=== PATIENT | female | born 1970 | race African-American/Black ===

== ENCOUNTER 2017-02-19 20:54 | Emergency (ER) | payer SELFPAY ==
[~2017-02-19] VITALS: Ht 175.3 cm; Wt 146.5 kg
[~2017-02-19 20:54] MED LIST: CYCL10TA2 PO; HYDR-971 PO; IBUP-1007 PO
[2017-02-19] MEDS ORDERED: IBUP-1007 PO (22:12)
[2017-02-19 22:13] LABS: OBC FLU VALID
--- NOTE | 2017-02-19 22:13 | PHYS DOC ---
Past Medical History Past Medical History: Anxiety, Diabetes-Type II, Hypertension Past Surgical History: , Other Additional Past Surgical Histo: left knee Alcohol Use: None Drug Use: None Adult General Chief Complaint Chief Complaint: FLU SYMPTOM HPI HPI Patient is a 46 year old female who presents with complaint of sore throat for the past 3 days. Patient states her symptoms have been progressively getting worse. Patient has been having fevers at home but states that she has not been measuring her temperature. Patient has noted swelling and pus present on her tonsils. Patient has been taking ibuprofen and Tylenol to help with symptoms with no relief. Patient states that she has had been having been having intermittent cough as well with her symptoms. Patient has noted pain along her neck near her jaw. Patient denies any chest pain associated with her symptoms. Review of Systems Review of Systems Constitutional: Fever, body aches [] Eyes: Denies change in visual acuity, redness, or eye pain [] HENT: Sore throat [] Respiratory: Cough [] Cardiovascular: Denies chest pain or edema [] GI: Denies abdominal pain, nausea, vomiting, bloody stools or diarrhea [] : Denies dysuria or hematuria [] Musculoskeletal: Denies back pain or joint pain [] Integument: Denies rash or skin lesions [] Neurologic: Denies headache, focal weakness or sensory changes [] Current Medications Current Medications Current Medications Medications (Trade) Dose Ordered Sig/Jaylen Start Time Stop Time Status Last Admin Dose Admin Acetaminophen/ Hydrocodone Bitart (Lortab 7.5/325) 1 tab 1X ONCE 02/19/17 22:30 02/19/17 22:31 Dexamethasone Sodium Phosphate (Decadron) 12 mg 1X ONCE 02/19/17 22:30 02/19/17 22:31 Allergies Allergies Allergies Coded Allergies Type Severity Reaction Last Updated Verified No Known Drug Allergies 03/24/16 No Physical Exam Physical Exam Constitutional: Alert, obese, afebrile, no acute distress. [] HENT: Normocephalic, atraumatic, bilateral external ears normal, oropharynx moist, tonsils appear swollen, erythematous, with exudates present, nose normal. [] Eyes: PERRLA, EOMI, conjunctiva normal, no discharge. [] Neck: Normal range of motion, tender anterior cervical lymphadenopathy present, no stridor. [] Cardiovascular:Heart rate regular rhythm, no murmur [] Lungs & Thorax: Bilateral breath sounds clear to auscultation [] Abdomen: Bowel sounds normal, soft, no tenderness, no masses, no pulsatile masses. [] Skin: Warm, dry, no erythema, no rash. [] Back: No tenderness, no CVA tenderness. [] Extremities: No tenderness, no cyanosis, no clubbing, ROM intact, no edema. [] Neurologic: Alert and oriented X 3, normal motor function, normal sensory function, no focal deficits noted. [] Current Patient Data Vital Signs Vital Signs Date Time Temp Pulse Resp B/P Pulse Ox O2 Delivery O2 Flow Rate FiO2 02/19/17 20:59 98.2 91 20 184/101 98 Room Air 98.2 EKG EKG Not performed [] Radiology/Procedures Radiology/Procedures Not performed [] Course & Med Decision Making Course & Med Decision Making Pertinent Labs and Imaging studies reviewed. (See chart for details) The patient's strep test was positive in the emergency department. Patient treated with Bicillin L-A injection for treatment of strep pharyngitis. Patient was also given IM Decadron and oral [place] to help with sore throat symptoms. Advise follow-up with primary doctor in 3-5 days if symptoms are not improving and return to emergency department for any worsening symptoms. Patient voiced understanding and in agreement with treatment plan. Dragon Disclaimer Dragon Disclaimer This electronic medical record was generated, in whole or in part, using a voice recognition dictation system. Departure Departure Impression: Primary Impression: Strep pharyngitis Disposition: HOME, SELF-CARE Condition: IMPROVED Referrals: NO PCP (PCP) Patient Instructions: Strep Throat Additional Instructions: You were treated with an injection of antibiotics called Bicillin which will completely treat your strep throat. Continue on Tylenol and ibuprofen as well as warm fluids and salt water gargles to help soothe your throat. Follow-up with your primary doctor in 3-5 days if symptoms do not improve and return to the emergency department for any worsening symptoms. Scripts Ibuprofen 600 Mg [id number] Mg PO Q6HRS PRN INFLAMMATION #30 TAB Prov:SEYMOUR LIZ MD 02/19/17 SEYMOUR LIZ MD Feb 19, 2017 22:13
[2017-02-19 22:30] VITALS: BP 152/100
[2017-02-19] MEDS ORDERED: HYDROCODONE/APAP 7.5/325MG TABLET. PO ONE (22:30)
[2017-02-19] MEDS ORDERED: PENICILLIN G BENZATHINE LA 1,200,000 UNIT/2 ML DISP.SYRIN. IM ONE (22:30)
[2017-02-19] MEDS ORDERED: DEXAMETHASONE SOD PHOS 20 MG/5 ML VIAL. IM ONE (22:30)
[2017-02-20 08:42] LABS: NEGATIVE OBC STREP NEG; POSITIVE OBC STREP POS
== END 2017-02-19 22:50 | disposition home or self-care (01) ==
LOC: ER 20:54
DX: J02.0 Streptococcal pharyngitis (principal); M79.1 Myalgia
CPT/HCPCS: 87804; 87880; 96372; 99284; J0561; J1100

== ENCOUNTER 2017-04-01 13:35 | Observation (INO) | payer SELFPAY ==
[~2017-04-01] VITALS: Ht 175.3 cm; Wt 148.5 kg
[2017-04-01] MEDS ORDERED: ONDANSETRON PF 4 MG/2 ML VIAL. IV ONE (14:45)
[2017-04-01 14:53] LABS: BASO # 0.1 x10^3/uL (0.0-0.2); BASO % 1 % (0-3); EOS % 1 % (0-3); HEMATOCRIT 37.7 % (36.0-47.0); LYMPH # 3.4 x10^3/uL (1.0-4.8); LYMPH % 34 % (24-48); MEAN CORPUSCULAR HEMOGLOBIN 26 pg (25-35); MEAN CORPUSCULAR HGB CONC 32 g/dL (31-37); MEAN CORPUSCULAR VOLUME 82 fL (79-100); MONO % 6 % (0-9); NEUT % 58 % (31-73); PLATELET COUNT 285 x10^3/uL (140-400); RED BLOOD COUNT 4.62 x10^6/uL (3.50-5.40); RED CELL DISTRIBUTION WIDTH 14.9 % (11.5-14.5); WHITE BLOOD COUNT 9.9 x10^3/uL (4.0-11.0)
--- NOTE | 2017-04-01 14:57 | RAD ---
Indication right chest pain for 3 days. PA and lateral views of the chest were obtained and are compared to a study just over 10 years ago. Heart size is normal. There is some suggested mild pulmonary vascular congestion or perhaps fluid overload. A focal consolidated pneumonia is not seen. There is no pleural fluid or pneumothorax. Bony structures appear grossly intact. IMPRESSION: No focal process. Suspect mild pulmonary vascular congestion or fluid overload.
[2017-04-01] MEDS: fentaNYL PF VIAL 100 MCG/2 ML VIAL IV PRN ×4 (14:59→22:57)
[2017-04-01 15:07] LABS: CALCIUM 9.3 mg/dL (8.5-10.1); GFR 72.5; POTASSIUM 3.8 mmol/L (3.5-5.1)
--- NOTE | 2017-04-01 15:07 | RAD ---
Right upper quadrant abdominal ultrasound, 04/01/2017: History: Pain The gallbladder is surgically absent. The common hepatic duct measures 6 mm which is within normal limits for the postcholecystectomy state. The liver demonstrates generalized increased echogenicity. No hepatic mass is evident. The liver measures 16.5 cm in craniocaudad extent. The visualized portions of the pancreas and right kidney are unremarkable. IMPRESSION: 1. Status post cholecystectomy. 2. Increased hepatic echogenicity suggesting hepatic steatosis.
[2017-04-01 15:12] LABS: ALBUMIN 3.2 g/dL (3.4-5.0); ALBUMIN/GLOBULIN RATIO 0.6 (1.0-1.7); TOTAL BILIRUBIN 0.2 mg/dL (0.2-1.0); TOTAL PROTEIN 8.4 g/dL (6.4-8.2)
--- NOTE | 2017-04-01 15:19 | PHYS DOC ---
Past Medical History Past Medical History: Anxiety, Diabetes-Type II, Hypertension Past Surgical History: Cholecystectomy, , Other Additional Past Surgical Histo: left knee Alcohol Use: None Drug Use: None Adult General Chief Complaint Chief Complaint: OTHER [facility]PL[facility] HPI Patient is a 46 year old female who presents with constant pain to right lower chest and right upper quadrant of her abdomen with fluctuating intensity. States she has pain radiation through her right upper chest to her right shoulder and right back. Pain is worse with breathing or moving. She has decreased appetite and slight nausea. She has pain if she coughs, but has only coughed a couple times. She denies fever or chills, vomiting, palpitations, diaphoresis, orthopnea, lightheadedness, leg pain or swelling, hemoptysis, dyspnea, pain with eating, constipation, diarrhea, dysuria, hematuria. Review of Systems Review of Systems Constitutional: Denies fever or chills [] Eyes: Denies change in visual acuity, redness, or eye pain [] HENT: Denies nasal congestion or sore throat [] Respiratory: Denies shortness of breath [] Cardiovascular: No additional information not addressed in HPI [] GI: Denies vomiting, bloody stools or diarrhea [] : Denies dysuria or hematuria [] Musculoskeletal: Denies joint pain [] Integument: Denies rash or skin lesions [] Neurologic: Denies headache, focal weakness or sensory changes [] Endocrine: Denies polyuria or polydipsia [] Current Medications Current Medications Current Medications Medications (Trade) Dose Ordered Sig/Jaylen Start Time Stop Time Status Last Admin Dose Admin Fentanyl Citrate (Fentanyl 2ml Vial) 50 mcg PRN Q15MIN PRN 04/01/17 14:45 04/01/17 15:33 50 MCG Info (Do NOT chart on this entry -- for MONITORING) 1 each PRN DAILY PRN 04/01/17 16:00 04/03/17 15:59 Iohexol (Omnipaque 300 Mg/ml) 75 ml 1X ONCE 04/01/17 16:00 04/01/17 16:01 DC 04/01/17 16:00 75 ML Ondansetron HCl (Zofran) 4 mg 1X ONCE 04/01/17 14:45 04/01/17 14:46 DC 04/01/17 14:45 4 MG Allergies Allergies Allergies Coded Allergies Type Severity Reaction Last Updated Verified No Known Drug Allergies 03/24/16 No Physical Exam Physical Exam Constitutional: Well developed, well nourished, no acute distress, non-toxic appearance. [] HENT: Normocephalic, atraumatic, bilateral external ears normal, oropharynx moist, nose normal. [] Eyes: PERRLA, EOMI. [] Neck: Normal range of motion, supple. [] Cardiovascular:Heart rate regular rhythm, equal distal pulses [] Lungs & Thorax: Bilateral breath sounds clear to auscultation [] Abdomen: Bowel sounds normal, soft, mild epigastric and RUQ tenderness, no guarding or rebound. [] Skin: Warm, dry, no erythema, no rash. [] Back: No midline spinal tenderness, no CVA tenderness. Has tenderness through right paraspinal muscles with no visual or palpable abnormality [] Extremities: No tenderness, ROM intact, no edema. [] Neurologic: Alert and oriented X 3, normal motor function, normal sensory function, no focal deficits noted. [] Psychologic: Affect normal, judgement normal, mood normal. [] Current Patient Data Vital Signs Vital Signs Date Time Temp Pulse Resp B/P (MAP) Pulse Ox O2 Delivery O2 Flow Rate FiO2 04/01/17 16:44 80 18 177/123 (141) 97 Room Air 04/01/17 13:50 98.7 98.7 Lab Values Laboratory Tests Test 04/01/17 14:45 04/01/17 15:30 White Blood Count 9.9 x10^3/uL (4.0-11.0) Red Blood Count 4.62 x10^6/uL (3.50-5.40) Hemoglobin 12.0 g/dL (12.0-15.5) Hematocrit 37.7 % (36.0-47.0) Mean Corpuscular Volume 82 fL (79-100) Mean Corpuscular Hemoglobin 26 pg (25-35) Mean Corpuscular Hemoglobin Concent 32 g/dL (31-37) Red Cell Distribution Width 14.9 % (11.5-14.5) H Platelet Count 285 x10^3/uL (140-400) Neutrophils (%) (Auto) 58 % (31-73) Lymphocytes (%) (Auto) 34 % (24-48) Monocytes (%) (Auto) 6 % (0-9) Eosinophils (%) (Auto) 1 % (0-3) Basophils (%) (Auto) 1 % (0-3) Neutrophils # (Auto) 5.7 x10^3uL (1.8-7.7) Lymphocytes # (Auto) 3.4 x10^3/uL (1.0-4.8) Monocytes # (Auto) 0.6 x10^3/uL (0.0-1.1) Eosinophils # (Auto) 0.1 x10^3/uL (0.0-0.7) Basophils # (Auto) 0.1 x10^3/uL (0.0-0.2) D-Dimer (Lou) 0.71 ug/mlFEU (0.00-0.50) H Sodium Level 140 mmol/L (136-145) Potassium Level 3.8 mmol/L (3.5-5.1) Chloride Level 102 mmol/L (98-107) Carbon Dioxide Level 31 mmol/L (21-32) Anion Gap 7 (6-14) Blood Urea Nitrogen 10 mg/dL (7-20) Creatinine 1.0 mg/dL (0.6-1.0) Estimated GFR (Cockcroft-Gault) 72.5 BUN/Creatinine Ratio 10 (6-20) Glucose Level 238 mg/dL (70-99) H Calcium Level 9.3 mg/dL (8.5-10.1) Total Bilirubin 0.2 mg/dL (0.2-1.0) Aspartate Amino Transferase (AST) 16 U/L (15-37) Alanine Aminotransferase (ALT) 17 U/L (14-59) Alkaline Phosphatase 111 U/L (46-116) Troponin I Quantitative < 0.017 ng/mL (0.000-0.055) Total Protein 8.4 g/dL (6.4-8.2) H Albumin 3.2 g/dL (3.4-5.0) L Albumin/Globulin Ratio 0.6 (1.0-1.7) L Lipase 108 U/L (73-393) Urine Collection Type Unknown Urine Color Jeanne Urine Clarity Clear Urine pH 6.0 Urine Specific [place] >=1.030 Urine Protein 30 mg/dL (NEG-TRACE) Urine Glucose (UA) 500 mg/dL (NEG) Urine Ketones (Stick) Trace mg/dL (NEG) Urine Blood Negative (NEG) Urine Nitrite Negative (NEG) Urine Bilirubin Small (NEG) Urine Urobilinogen Dipstick 1.0 mg/dL (0.2 mg/dL) Urine Leukocyte Esterase Negative (NEG) Urine RBC 0 /HPF (0-2) Urine WBC Occ /HPF (0-4) Urine Squamous Epithelial Cells Few /LPF Urine Bacteria 0 /HPF (0-FEW) Urine Mucus Marked /LPF Urine Test Negative (NEG) Laboratory Tests 04/01/17 14:45 Laboratory Tests 04/01/17 14:45 EKG EKG EKG as interpreted by me as normal sinus rhythm, rate 84, Q3 T3, no other acute ST-T changes, normal intervals, no ectopy Radiology/Procedures Radiology/Procedures Chest xray as interpreted by me with no acute cardiopulmonary disease process Ultrasound right upper quadrant IMPRESSION: 1. Status post cholecystectomy. 2. Increased hepatic echogenicity suggesting hepatic steatosis. DICTATED and SIGNED BY: TONJA ROD MD DATE: 04/01/[address] angiogram chest IMPRESSION: Very limited study evaluating for pulmonary embolus. No large central pulmonary emboli are seen but there is very poor opacification of the pulmonary arteries which limits the assessment for pulmonary embolus. A definite acute process in the chest is not apparent. Probable dromedary hump associated with the left kidney. If renal pathology is clinically suspect ultrasound could be performed. DICTATED and SIGNED BY: CHELLE SUN MD DATE: 04/01/17 1650 Course & Med Decision Making Course & Med Decision Making Pertinent Labs and Imaging studies reviewed. (See chart for details) Laboratory evaluation is largely unremarkable other than elevated d-dimer. CT angiogram was useless due to poor timing of contrast injection and imaging. Imaging is otherwise nonacute as above. Recommend observation admission with dose of Lovenox for possible pulmonary embolism. Discussed case with Dr. Lawson, who will admit and perform further workup for pulmonary embolus. Dragon Disclaimer Dragon Disclaimer This electronic medical record was generated, in whole or in part, using a voice recognition dictation system. Departure Departure Impression: Primary Impression: Chest pain Additional Impressions: Back pain Right upper quadrant abdominal pain Disposition: ADMITTED INPATIENT Condition: STABLE Referrals: NO PCP (PCP) Problem Qualifiers Primary Impression: Chest pain Chest pain type: chest pain on breathing Qualified Codes: R07.1 - Chest pain on breathing Additional Impressions: Back pain Back pain location: thoracic back pain Chronicity: acute Back pain laterality: right Qualified Codes: M54.6 - Pain in thoracic spine Soraya TRUJILLO MD April 01, 2017 15:19
[2017-04-01 15:39] LABS: BILIRUBIN,URINE SMALL (NEG); GLUCOSE,URINE 500 mg/dL (NEG); NITRITE,URINE NEGATIVE (NEG); PROTEIN,URINE 30 mg/dL (NEG-TRACE)
[2017-04-01 15:44] LABS: BACTERIA,URINE 0 /HPF (0-FEW); RBC,URINE 0 /HPF (0-2); SQUAMOUS EPITHELIAL CELL,UR FEW /LPF; WBC,URINE OCC /HPF (0-4)
[2017-04-01] MEDS ORDERED: IOHEXOL 300 MG/ML 75 ML VIAL IV ONE (16:00)
[2017-04-01] MEDS ORDERED: CONTRAST GIVEN MC PRN (16:00)
[2017-04-01 16:29] LABS: NEG OBC UR NEG; POS OBC UR POS
--- NOTE | 2017-04-01 17:01 | RAD ---
Indication right-sided chest pain. Axial images through the chest were obtained. The examination was to be tailored for the detection of pulmonary emboli. MIP images were generated and reviewed. 75 cc of Omnipaque [address] imaging of the chest is available. There is suboptimal visualization of the pulmonary arteries. No definite large central pulmonary emboli are seen or definite embolus in the proximal portion of the main pulmonary arteries. Distal aspects of the main pulmonary arteries as well as the lobar, segmental and subsegmental branches are is not adequately opacified to the assess for potential pulmonary embolus. Imaging through the upper abdomen shows no acute finding. There is a probable dromedary hump seen associated with the left kidney. The thoracic aorta is not well opacified but grossly normal. There is no significant hilar or mediastinal adenopathy. There is no dominant soft tissue mass in either lung. There is no acute parenchymal infiltrate significant pleural fluid collection or pneumothorax seen. IMPRESSION: Very limited study evaluating for pulmonary embolus. No large central pulmonary emboli are seen but there is very poor opacification of the pulmonary arteries which limits the assessment for pulmonary embolus. A definite acute process in the chest is not apparent. Probable dromedary hump associated with the left kidney. If renal pathology is clinically suspect ultrasound could be performed. PQRS Compliance Statement: One or more of the following individualized dose reduction techniques were utilized for this examination: 1. Automated exposure control 2. Adjustment of the mA and/or kV according to patient size 3. Use of iterative reconstruction technique
[2017-04-01] MEDS ORDERED: IV NORMAL SALINE 1000ML BAG 1,000 ML IV ONE (17:45)
[2017-04-01] MEDS ORDERED: ACETAMINOPHEN 325 MG TABLET. PO PRN (17:45)
[2017-04-01] MEDS ORDERED: ONDANSETRON PF 4 MG/2 ML VIAL. IV PRN ×2 (17:45→23:15)
[2017-04-01] MEDS: MORPHINE SULFATE 4 MG/ML DISP.SYRIN. IV PRN ×2 (17:53→20:00)
[2017-04-01 21:25] VITALS: BP 173/113
[2017-04-01 21:30] VITALS: BP 173/83
[2017-04-01 23:00] VITALS: BP 169/105
--- NOTE | 2017-04-01 23:03 | PDOC1 ---
History and Physical Current Problem List Problem List Problems Medical Problems: (1) Back pain Status: Acute (2) Chest pain Status: Acute (3) Right upper quadrant abdominal pain Status: Acute Current Medications Current Medications Current Medications Medications (Trade) Dose Ordered Sig/Jaylen Start Time Stop Time Status Last Admin Dose Admin Acetaminophen (Tylenol) 650 mg PRN Q4HRS PRN 04/01/17 17:45 04/02/17 17:44 Enoxaparin Sodium (Lovenox 150mg Syringe) 140 mg 1X ONCE 04/01/17 17:45 04/01/17 17:46 DC 04/01/17 18:07 140 MG Fentanyl Citrate (Fentanyl 2ml Vial) 50 mcg PRN Q15MIN PRN 04/01/17 14:45 04/01/17 22:57 50 MCG Info (Do NOT chart on this entry -- for MONITORING) 1 each PRN DAILY PRN 04/01/17 16:00 04/03/17 15:59 Iohexol (Omnipaque 300 Mg/ml) 75 ml 1X ONCE 04/01/17 16:00 04/01/17 16:01 DC 04/01/17 16:00 75 ML Morphine Sulfate 4 mg PRN Q2HR PRN 04/01/17 17:45 04/02/17 17:44 04/01/17 20:00 4 MG Ondansetron HCl (Zofran) 4 mg PRN Q8HRS PRN 04/01/17 17:45 04/02/17 17:44 Sodium Chloride 1,000 ml @ 100 mls/hr 1X ONCE 04/01/17 17:45 04/02/17 03:44 04/01/17 17:45 100 MLS/HR Allergies Allergies Allergies Coded Allergies Type Severity Reaction Last Updated Verified No Known Drug Allergies 03/24/16 No ROS Review of System CONSTITUTIONAL: No fever or chills EYES: No recent changes SKIN: No rash or itching CARDIOVASCULAR: chest pain no, syncope, palpitations, or edema RESPIRATORY: No SOB or cough GASTROINTESTINAL: No nausea, vomiting or abdominal pain NEUROLOGICAL: No headaches or weakness ENDOCRINE: No cold or heat intolerance GENITOURINARY: No urgency or frequency of urination MUSCULOSKELETAL: back pain /stiffness LYMPHATICS: No enlarged lymph nodes PSYCHIATRIC: No anxiety or depression Physical Exam Physical Exam GEN.: No apparent distress. Alert and oriented. obese, not in distress HEENT: Head is normocephalic, atraumatic NECK: Supple. no JVD LUNGS: Clear to auscultation. normal airflow, chest tenderness in back HEART: RRR, S1, S2 present. Peripheral pulses intact ABDOMEN: Soft, nontender. Positive bowel sounds. EXTREMITIES: Without any cyanosis. NEUROLOGIC: Normal speech, normal tone PSYCHIATRIC: Normal affect, normal mood. SKIN: No ulcerations Vitals Vitals Vital Signs Date Time Temp Pulse Resp B/P (MAP) Pulse Ox O2 Delivery O2 Flow Rate FiO2 04/01/17 22:57 16 96 Room Air 04/01/17 19:50 92 170/88 (115) 04/01/17 13:50 98.7 98.7 Labs Labs Laboratory Tests Test 04/01/17 14:45 04/01/17 15:30 White Blood Count 9.9 x10^3/uL (4.0-11.0) Red Blood Count 4.62 x10^6/uL (3.50-5.40) Hemoglobin 12.0 g/dL (12.0-15.5) Hematocrit 37.7 % (36.0-47.0) Mean Corpuscular Volume 82 fL (79-100) Mean Corpuscular Hemoglobin 26 pg (25-35) Mean Corpuscular Hemoglobin Concent 32 g/dL (31-37) Red Cell Distribution Width 14.9 % (11.5-14.5) Platelet Count 285 x10^3/uL (140-400) Neutrophils (%) (Auto) 58 % (31-73) Lymphocytes (%) (Auto) 34 % (24-48) Monocytes (%) (Auto) 6 % (0-9) Eosinophils (%) (Auto) 1 % (0-3) Basophils (%) (Auto) 1 % (0-3) Neutrophils # (Auto) 5.7 x10^3uL (1.8-7.7) Lymphocytes # (Auto) 3.4 x10^3/uL (1.0-4.8) Monocytes # (Auto) 0.6 x10^3/uL (0.0-1.1) Eosinophils # (Auto) 0.1 x10^3/uL (0.0-0.7) Basophils # (Auto) 0.1 x10^3/uL (0.0-0.2) D-Dimer (Lou) 0.71 ug/mlFEU (0.00-0.50) Sodium Level 140 mmol/L (136-145) Potassium Level 3.8 mmol/L (3.5-5.1) Chloride Level 102 mmol/L (98-107) Carbon Dioxide Level 31 mmol/L (21-32) Anion Gap 7 (6-14) Blood Urea Nitrogen 10 mg/dL (7-20) Creatinine 1.0 mg/dL (0.6-1.0) Estimated GFR (Cockcroft-Gault) 72.5 BUN/Creatinine Ratio 10 (6-20) Glucose Level 238 mg/dL (70-99) Calcium Level 9.3 mg/dL (8.5-10.1) Total Bilirubin 0.2 mg/dL (0.2-1.0) Aspartate Amino Transf (AST/SGOT) 16 U/L (15-37) Alanine Aminotransferase (ALT/SGPT) 17 U/L (14-59) Alkaline Phosphatase 111 U/L (46-116) Troponin I Quantitative < 0.017 ng/mL (0.000-0.055) Total Protein 8.4 g/dL (6.4-8.2) Albumin 3.2 g/dL (3.4-5.0) Albumin/Globulin Ratio 0.6 (1.0-1.7) Lipase 108 U/L (73-393) Urine Collection Type Unknown Urine Color Jeanne Urine Clarity Clear Urine pH 6.0 Urine Specific [place] >=1.030 Urine Protein 30 mg/dL (NEG-TRACE) Urine Glucose (UA) 500 mg/dL (NEG) Urine Ketones (Stick) Trace mg/dL (NEG) Urine Blood Negative (NEG) Urine Nitrite Negative (NEG) Urine Bilirubin Small (NEG) Urine Urobilinogen Dipstick 1.0 mg/dL (0.2 mg/dL) Urine Leukocyte Esterase Negative (NEG) Urine RBC 0 /HPF (0-2) Urine WBC Occ /HPF (0-4) Urine Squamous Epithelial Cells Few /LPF Urine Bacteria 0 /HPF (0-FEW) Urine Mucus Marked /LPF Urine Test Negative (NEG) Laboratory Tests Test 04/01/17 14:45 04/01/17 15:30 White Blood Count 9.9 x10^3/uL (4.0-11.0) Red Blood Count 4.62 x10^6/uL (3.50-5.40) Hemoglobin 12.0 g/dL (12.0-15.5) Hematocrit 37.7 % (36.0-47.0) Mean Corpuscular Volume 82 fL (79-100) Mean Corpuscular Hemoglobin 26 pg (25-35) Mean Corpuscular Hemoglobin Concent 32 g/dL (31-37) Red Cell Distribution Width 14.9 % (11.5-14.5) Platelet Count 285 x10^3/uL (140-400) Neutrophils (%) (Auto) 58 % (31-73) Lymphocytes (%) (Auto) 34 % (24-48) Monocytes (%) (Auto) 6 % (0-9) Eosinophils (%) (Auto) 1 % (0-3) Basophils (%) (Auto) 1 % (0-3) Neutrophils # (Auto) 5.7 x10^3uL (1.8-7.7) Lymphocytes # (Auto) 3.4 x10^3/uL (1.0-4.8) Monocytes # (Auto) 0.6 x10^3/uL (0.0-1.1) Eosinophils # (Auto) 0.1 x10^3/uL (0.0-0.7) Basophils # (Auto) 0.1 x10^3/uL (0.0-0.2) D-Dimer (Lou) 0.71 ug/mlFEU (0.00-0.50) Sodium Level 140 mmol/L (136-145) Potassium Level 3.8 mmol/L (3.5-5.1) Chloride Level 102 mmol/L (98-107) Carbon Dioxide Level 31 mmol/L (21-32) Anion Gap 7 (6-14) Blood Urea Nitrogen 10 mg/dL (7-20) Creatinine 1.0 mg/dL (0.6-1.0) Estimated GFR (Cockcroft-Gault) 72.5 BUN/Creatinine Ratio 10 (6-20) Glucose Level 238 mg/dL (70-99) Calcium Level 9.3 mg/dL (8.5-10.1) Total Bilirubin 0.2 mg/dL (0.2-1.0) Aspartate Amino Transf (AST/SGOT) 16 U/L (15-37) Alanine Aminotransferase (ALT/SGPT) 17 U/L (14-59) Alkaline Phosphatase 111 U/L (46-116) Troponin I Quantitative < 0.017 ng/mL (0.000-0.055) Total Protein 8.4 g/dL (6.4-8.2) Albumin 3.2 g/dL (3.4-5.0) Albumin/Globulin Ratio 0.6 (1.0-1.7) Lipase 108 U/L (73-393) Urine Collection Type Unknown Urine Color Jeanne Urine Clarity Clear Urine pH 6.0 Urine Specific [place] >=1.030 Urine Protein 30 mg/dL (NEG-TRACE) Urine Glucose (UA) 500 mg/dL (NEG) Urine Ketones (Stick) Trace mg/dL (NEG) Urine Blood Negative (NEG) Urine Nitrite Negative (NEG) Urine Bilirubin Small (NEG) Urine Urobilinogen Dipstick 1.0 mg/dL (0.2 mg/dL) Urine Leukocyte Esterase Negative (NEG) Urine RBC 0 /HPF (0-2) Urine WBC Occ /HPF (0-4) Urine Squamous Epithelial Cells Few /LPF Urine Bacteria 0 /HPF (0-FEW) Urine Mucus Marked /LPF Urine Test Negative (NEG) VTE Prophylaxis Ordered VTE Prophylaxis Devices: Yes VTE Pharmacological Prophylaxi: Yes PASTOR MOELLER MD April 01, 2017 23:03
[2017-04-01] MEDS ORDERED: ALBUTEROL SULFATE 2.5 MG/3 ML NEBU. NEB PRN (23:15)
[2017-04-02] MEDS: ACETAMINOPHEN 325 MG TABLET. PO PRN ×2 (01:51→11:37)
[2017-04-02] MEDS: fentaNYL PF VIAL 100 MCG/2 ML VIAL IV PRN (01:53)
[2017-04-02] MEDS ORDERED: ASPI-482 PO (02:36)
[2017-04-02 03:00] VITALS: BP 160/107
[2017-04-02] MEDS: HYDROcodone/APAP 5/325MG 1 TAB TABLET PO PRN ×2 (03:59→10:26)
[2017-04-02] MEDS: hydrALAZINE 20 MG/ML VIAL. IVP PRN ×2 (04:08→10:28)
[2017-04-02] MEDS: MORPHINE SULFATE 4 MG/ML DISP.SYRIN. IV PRN ×3 (05:20→15:13)
[2017-04-02 06:09] LABS: BASO # 0.1 x10^3/uL (0.0-0.2); BASO % 1 % (0-3); EOS % 2 % (0-3); HEMATOCRIT 34.9 % (36.0-47.0); HEMOGLOBIN 11.6 g/dL (12.0-15.5); LYMPH # 3.9 x10^3/uL (1.0-4.8); LYMPH % 40 % (24-48); MEAN CORPUSCULAR HEMOGLOBIN 27 pg (25-35); MEAN CORPUSCULAR HGB CONC 33 g/dL (31-37); MEAN CORPUSCULAR VOLUME 80 fL (79-100); MONO % 7 % (0-9); NEUT % 51 % (31-73); PLATELET COUNT 274 x10^3/uL (140-400); RED BLOOD COUNT 4.38 x10^6/uL (3.50-5.40); RED CELL DISTRIBUTION WIDTH 14.7 % (11.5-14.5); WHITE BLOOD COUNT 9.8 x10^3/uL (4.0-11.0)
[2017-04-02 06:27] LABS: CALCIUM 9.1 mg/dL (8.5-10.1); CREATININE 0.9 mg/dL (0.6-1.0); GFR 81.9; POTASSIUM 4.4 mmol/L (3.5-5.1)
--- NOTE | 2017-04-02 07:24 | EKG ---
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
[2017-04-02 07:30] VITALS: BP 180/99
[2017-04-02] MEDS: IV NORMAL SALINE 1000ML BAG 1,000 ML IV SCH ×2 (08:41→16:30)
[2017-04-02] MEDS: ASPIRIN ENTERIC COATED 81 MG TABLET.DR. PO SCH (10:26)
[2017-04-02 10:30] VITALS: BP 188/113
[2017-04-02] MEDS ORDERED: LISI1TAB5 PO (12:12)
[2017-04-02] MEDS ORDERED: LABETALOL 20 MG/4 ML DISP.SYRIN. IVP ONE (12:15)
--- NOTE | 2017-04-02 12:16 | PDOC ---
PROGRESS NOTES Chief Complaint Chief Complaint 1. COstochondritis 2. HTN URGENCY 3. HEadaches 4. Obesity 5. NEck spasms History of Present Illness History of Present Illness Crying CLaims headaches, neck hurts CTA neg' TRops neg EKG neg No PCP, SP BUt SBP 180s, was 200s on admit PLAn: Meets JNC 7 HTN stage 2 STart LIsinopil/HCTZ combo (2 drug regimen) INc tyelenol dose STart flexeril 10 TID schedueld Check echo - hypertensive heart dse HOLD Dc Vitals Vitals Vital Signs Date Time Temp Pulse Resp B/P (MAP) Pulse Ox O2 Delivery O2 Flow Rate FiO2 04/02/17 10:30 97.7 80 20 188/113 (138) 94 Room Air 97.7 Physical Exam General: Other (crying) Heart: Regular rate Lungs: Clear Abdomen: Normal bowel sounds, Soft Extremities: No clubbing, No cyanosis Skin: No rashes, No breakdown Labs LABS Laboratory Tests Test 04/01/17 14:45 04/01/17 15:30 04/02/17 04:35 04/02/17 04:55 White Blood Count 9.9 x10^3/uL (4.0-11.0) 9.8 x10^3/uL (4.0-11.0) Red Blood Count 4.62 x10^6/uL (3.50-5.40) 4.38 x10^6/uL (3.50-5.40) Hemoglobin 12.0 g/dL (12.0-15.5) 11.6 g/dL (12.0-15.5) Hematocrit 37.7 % (36.0-47.0) 34.9 % (36.0-47.0) Mean Corpuscular Volume 82 fL (79-100) 80 fL (79-100) Mean Corpuscular Hemoglobin 26 pg (25-35) 27 pg (25-35) Mean Corpuscular Hemoglobin Concent 32 g/dL (31-37) 33 g/dL (31-37) Red Cell Distribution Width 14.9 % (11.5-14.5) 14.7 % (11.5-14.5) Platelet Count 285 x10^3/uL (140-400) 274 x10^3/uL (140-400) Neutrophils (%) (Auto) 58 % (31-73) 51 % (31-73) Lymphocytes (%) (Auto) 34 % (24-48) 40 % (24-48) Monocytes (%) (Auto) 6 % (0-9) 7 % (0-9) Eosinophils (%) (Auto) 1 % (0-3) 2 % (0-3) Basophils (%) (Auto) 1 % (0-3) 1 % (0-3) Neutrophils # (Auto) 5.7 x10^3uL (1.8-7.7) 5.0 x10^3uL (1.8-7.7) Lymphocytes # (Auto) 3.4 x10^3/uL (1.0-4.8) 3.9 x10^3/uL (1.0-4.8) Monocytes # (Auto) 0.6 x10^3/uL (0.0-1.1) 0.6 x10^3/uL (0.0-1.1) Eosinophils # (Auto) 0.1 x10^3/uL (0.0-0.7) 0.2 x10^3/uL (0.0-0.7) Basophils # (Auto) 0.1 x10^3/uL (0.0-0.2) 0.1 x10^3/uL (0.0-0.2) D-Dimer (Lou) 0.71 ug/mlFEU (0.00-0.50) Sodium Level 140 mmol/L (136-145) 139 mmol/L (136-145) Potassium Level 3.8 mmol/L (3.5-5.1) 4.4 mmol/L (3.5-5.1) Chloride Level 102 mmol/L (98-107) 101 mmol/L (98-107) Carbon Dioxide Level 31 mmol/L (21-32) 27 mmol/L (21-32) Anion Gap 7 (6-14) 11 (6-14) Blood Urea Nitrogen 10 mg/dL (7-20) 15 mg/dL (7-20) Creatinine 1.0 mg/dL (0.6-1.0) 0.9 mg/dL (0.6-1.0) Estimated GFR (Cockcroft-Gault) 72.5 81.9 BUN/Creatinine Ratio 10 (6-20) Glucose Level 238 mg/dL (70-99) 170 mg/dL (70-99) Calcium Level 9.3 mg/dL (8.5-10.1) 9.1 mg/dL (8.5-10.1) Total Bilirubin 0.2 mg/dL (0.2-1.0) Aspartate Amino Transf (AST/SGOT) 16 U/L (15-37) Alanine Aminotransferase (ALT/SGPT) 17 U/L (14-59) Alkaline Phosphatase 111 U/L (46-116) Troponin I Quantitative < 0.017 ng/mL (0.000-0.055) < 0.017 ng/mL (0.000-0.055) Total Protein 8.4 g/dL (6.4-8.2) Albumin 3.2 g/dL (3.4-5.0) Albumin/Globulin Ratio 0.6 (1.0-1.7) Lipase 108 U/L (73-393) Urine Collection Type Unknown Urine Color Jeanne Urine Clarity Clear Urine pH 6.0 Urine Specific Celoron >=1.030 Urine Protein 30 mg/dL (NEG-TRACE) Urine Glucose (UA) 500 mg/dL (NEG) Urine Ketones (Stick) Trace mg/dL (NEG) Urine Blood Negative (NEG) Urine Nitrite Negative (NEG) Urine Bilirubin Small (NEG) Urine Urobilinogen Dipstick 1.0 mg/dL (0.2 mg/dL) Urine Leukocyte Esterase Negative (NEG) Urine RBC 0 /HPF (0-2) Urine WBC Occ /HPF (0-4) Urine Squamous Epithelial Cells Few /LPF Urine Bacteria 0 /HPF (0-FEW) Urine Mucus Marked /LPF Urine Test Negative (NEG) Review of Systems Review of Systems chest pain, headache, neck pain Assessment and Plan Assessmemt and Plan Problems Medical Problems: (1) Back pain Status: Acute (2) Chest pain Status: Acute (3) Right upper quadrant abdominal pain Status: Acute Problems: Comment Review of Relevant I have reviewed the following items kj (where applicable) has been applied. Labs Laboratory Tests Test 04/01/17 14:45 04/01/17 15:30 04/02/17 04:35 04/02/17 04:55 White Blood Count 9.9 x10^3/uL (4.0-11.0) 9.8 x10^3/uL (4.0-11.0) Red Blood Count 4.62 x10^6/uL (3.50-5.40) 4.38 x10^6/uL (3.50-5.40) Hemoglobin 12.0 g/dL (12.0-15.5) 11.6 g/dL (12.0-15.5) Hematocrit 37.7 % (36.0-47.0) 34.9 % (36.0-47.0) Mean Corpuscular Volume 82 fL (79-100) 80 fL (79-100) Mean Corpuscular Hemoglobin 26 pg (25-35) 27 pg (25-35) Mean Corpuscular Hemoglobin Concent 32 g/dL (31-37) 33 g/dL (31-37) Red Cell Distribution Width 14.9 % (11.5-14.5) 14.7 % (11.5-14.5) Platelet Count 285 x10^3/uL (140-400) 274 x10^3/uL (140-400) Neutrophils (%) (Auto) 58 % (31-73) 51 % (31-73) Lymphocytes (%) (Auto) 34 % (24-48) 40 % (24-48) Monocytes (%) (Auto) 6 % (0-9) 7 % (0-9) Eosinophils (%) (Auto) 1 % (0-3) 2 % (0-3) Basophils (%) (Auto) 1 % (0-3) 1 % (0-3) Neutrophils # (Auto) 5.7 x10^3uL (1.8-7.7) 5.0 x10^3uL (1.8-7.7) Lymphocytes # (Auto) 3.4 x10^3/uL (1.0-4.8) 3.9 x10^3/uL (1.0-4.8) Monocytes # (Auto) 0.6 x10^3/uL (0.0-1.1) 0.6 x10^3/uL (0.0-1.1) Eosinophils # (Auto) 0.1 x10^3/uL (0.0-0.7) 0.2 x10^3/uL (0.0-0.7) Basophils # (Auto) 0.1 x10^3/uL (0.0-0.2) 0.1 x10^3/uL (0.0-0.2) D-Dimer (Lou) 0.71 ug/mlFEU (0.00-0.50) Sodium Level 140 mmol/L (136-145) 139 mmol/L (136-145) Potassium Level 3.8 mmol/L (3.5-5.1) 4.4 mmol/L (3.5-5.1) Chloride Level 102 mmol/L (98-107) 101 mmol/L (98-107) Carbon Dioxide Level 31 mmol/L (21-32) 27 mmol/L (21-32) Anion Gap 7 (6-14) 11 (6-14) Blood Urea Nitrogen 10 mg/dL (7-20) 15 mg/dL (7-20) Creatinine 1.0 mg/dL (0.6-1.0) 0.9 mg/dL (0.6-1.0) Estimated GFR (Cockcroft-Gault) 72.5 81.9 BUN/Creatinine Ratio 10 (6-20) Glucose Level 238 mg/dL (70-99) 170 mg/dL (70-99) Calcium Level 9.3 mg/dL (8.5-10.1) 9.1 mg/dL (8.5-10.1) Total Bilirubin 0.2 mg/dL (0.2-1.0) Aspartate Amino Transf (AST/SGOT) 16 U/L (15-37) Alanine Aminotransferase (ALT/SGPT) 17 U/L (14-59) Alkaline Phosphatase 111 U/L (46-116) Troponin I Quantitative < 0.017 ng/mL (0.000-0.055) < 0.017 ng/mL (0.000-0.055) Total Protein 8.4 g/dL (6.4-8.2) Albumin 3.2 g/dL (3.4-5.0) Albumin/Globulin Ratio 0.6 (1.0-1.7) Lipase 108 U/L (73-393) Urine Collection Type Unknown Urine Color Jeanne Urine Clarity Clear Urine pH 6.0 Urine Specific Celoron >=1.030 Urine Protein 30 mg/dL (NEG-TRACE) Urine Glucose (UA) 500 mg/dL (NEG) Urine Ketones (Stick) Trace mg/dL (NEG) Urine Blood Negative (NEG) Urine Nitrite Negative (NEG) Urine Bilirubin Small (NEG) Urine Urobilinogen Dipstick 1.0 mg/dL (0.2 mg/dL) Urine Leukocyte Esterase Negative (NEG) Urine RBC 0 /HPF (0-2) Urine WBC Occ /HPF (0-4) Urine Squamous Epithelial Cells Few /LPF Urine Bacteria 0 /HPF (0-FEW) Urine Mucus Marked /LPF Urine Test Negative (NEG) Laboratory Tests Test 04/01/17 14:45 04/01/17 15:30 04/02/17 04:35 04/02/17 04:55 White Blood Count 9.9 x10^3/uL (4.0-11.0) 9.8 x10^3/uL (4.0-11.0) Red Blood Count 4.62 x10^6/uL (3.50-5.40) 4.38 x10^6/uL (3.50-5.40) Hemoglobin 12.0 g/dL (12.0-15.5) 11.6 g/dL (12.0-15.5) Hematocrit 37.7 % (36.0-47.0) 34.9 % (36.0-47.0) Mean Corpuscular Volume 82 fL (79-100) 80 fL (79-100) Mean Corpuscular Hemoglobin 26 pg (25-35) 27 pg (25-35) Mean Corpuscular Hemoglobin Concent 32 g/dL (31-37) 33 g/dL (31-37) Red Cell Distribution Width 14.9 % (11.5-14.5) 14.7 % (11.5-14.5) Platelet Count 285 x10^3/uL (140-400) 274 x10^3/uL (140-400) Neutrophils (%) (Auto) 58 % (31-73) 51 % (31-73) Lymphocytes (%) (Auto) 34 % (24-48) 40 % (24-48) Monocytes (%) (Auto) 6 % (0-9) 7 % (0-9) Eosinophils (%) (Auto) 1 % (0-3) 2 % (0-3) Basophils (%) (Auto) 1 % (0-3) 1 % (0-3) Neutrophils # (Auto) 5.7 x10^3uL (1.8-7.7) 5.0 x10^3uL (1.8-7.7) Lymphocytes # (Auto) 3.4 x10^3/uL (1.0-4.8) 3.9 x10^3/uL (1.0-4.8) Monocytes # (Auto) 0.6 x10^3/uL (0.0-1.1) 0.6 x10^3/uL (0.0-1.1) Eosinophils # (Auto) 0.1 x10^3/uL (0.0-0.7) 0.2 x10^3/uL (0.0-0.7) Basophils # (Auto) 0.1 x10^3/uL (0.0-0.2) 0.1 x10^3/uL (0.0-0.2) D-Dimer (Lou) 0.71 ug/mlFEU (0.00-0.50) Sodium Level 140 mmol/L (136-145) 139 mmol/L (136-145) Potassium Level 3.8 mmol/L (3.5-5.1) 4.4 mmol/L (3.5-5.1) Chloride Level 102 mmol/L (98-107) 101 mmol/L (98-107) Carbon Dioxide Level 31 mmol/L (21-32) 27 mmol/L (21-32) Anion Gap 7 (6-14) 11 (6-14) Blood Urea Nitrogen 10 mg/dL (7-20) 15 mg/dL (7-20) Creatinine 1.0 mg/dL (0.6-1.0) 0.9 mg/dL (0.6-1.0) Estimated GFR (Cockcroft-Gault) 72.5 81.9 BUN/Creatinine Ratio 10 (6-20) Glucose Level 238 mg/dL (70-99) 170 mg/dL (70-99) Calcium Level 9.3 mg/dL (8.5-10.1) 9.1 mg/dL (8.5-10.1) Total Bilirubin 0.2 mg/dL (0.2-1.0) Aspartate Amino Transf (AST/SGOT) 16 U/L (15-37) Alanine Aminotransferase (ALT/SGPT) 17 U/L (14-59) Alkaline Phosphatase 111 U/L (46-116) Troponin I Quantitative < 0.017 ng/mL (0.000-0.055) < 0.017 ng/mL (0.000-0.055) Total Protein 8.4 g/dL (6.4-8.2) Albumin 3.2 g/dL (3.4-5.0) Albumin/Globulin Ratio 0.6 (1.0-1.7) Lipase 108 U/L (73-393) Urine Collection Type Unknown Urine Color Jeanne Urine Clarity Clear Urine pH 6.0 Urine Specific Celoron >=1.030 Urine Protein 30 mg/dL (NEG-TRACE) Urine Glucose (UA) 500 mg/dL (NEG) Urine Ketones (Stick) Trace mg/dL (NEG) Urine Blood Negative (NEG) Urine Nitrite Negative (NEG) Urine Bilirubin Small (NEG) Urine Urobilinogen Dipstick 1.0 mg/dL (0.2 mg/dL) Urine Leukocyte Esterase Negative (NEG) Urine RBC 0 /HPF (0-2) Urine WBC Occ /HPF (0-4) Urine Squamous Epithelial Cells Few /LPF Urine Bacteria 0 /HPF (0-FEW) Urine Mucus Marked /LPF Urine Test Negative (NEG) Medications Current Medications Ondansetron HCl (Zofran) 4 mg 1X ONCE IV Last administered on 04/01/17 14:45 ; Start 04/01/17 at 14:45; Stop 04/01/17 at 14:46; Status DC Fentanyl Citrate (Fentanyl 2ml Vial) 50 mcg PRN Q15MIN PRN IV pain for 3 doses Last administered on 04/02/17 01:53; Start 04/01/17 at 14:45 Iohexol (Omnipaque 300 Mg/ml) 75 ml 1X ONCE IV Last administered on 04/01/17 16:00; Start 04/01/17 at 16:00; Stop 04/01/17 at 16:01; Status DC Info (Do NOT chart on this entry -- for MONITORING) 1 each PRN DAILY PRN MC SEE COMMENTS; Start 04/01/17 at 16:00; Stop 04/03/17 at 15:59 Ondansetron HCl (Zofran) 4 mg PRN Q8HRS PRN IV NAUSEA/VOMITING; Start 04/01/17 at 17:45; Stop 04/01/17 at 23:05; Status DC Morphine Sulfate 4 mg PRN Q2HR PRN IV PAIN Last administered on 04/02/17 08:41 ; Start 04/01/17 at 17:45; Stop 04/02/17 at 17:44 Acetaminophen (Tylenol) 650 mg PRN Q4HRS PRN PO FEVER; Start 04/01/17 at 17:45 ; Stop 04/01/17 at 23:05; Status DC Enoxaparin Sodium (Lovenox 150mg Syringe) 140 mg 1X ONCE SQ Last administered on 04/01/17 18:07; Start 04/01/17 at 17:45; Stop 04/01/17 at 17:46; Status DC Sodium Chloride 1,000 ml @ 100 mls/hr 1X ONCE IV Last administered on 17:45; Start 04/01/17 at 17:45; Stop 04/02/17 at 03:44; Status DC Acetaminophen (Tylenol) 325 mg PRN Q6HRS PRN PO MILD PAIN / TEMP Last administered on 04/02/17 11:37; Start 04/01/17 at 23:15 Acetaminophen/ Hydrocodone Bitart (Lortab 5/325) 1 tab PRN Q6HRS PRN PO MODERATE TO SEVERE PAIN Last administered on 04/02/17 03:59; Start 04/01/17 at 23:15 Hydralazine HCl (Apresoline) 10 mg PRN Q4HRS PRN IVP ELEVATED BP, SEE COMMENTS Last administered on 04/02/17 10:28; Start 04/01/17 at 23:15 Ondansetron HCl (Zofran) 4 mg PRN Q8HRS PRN IV NAUSEA/VOMITING; Start 04/01/17 at 23:15 Albuterol Sulfate (Ventolin Neb Soln) 2.5 mg PRN Q4HRS PRN NEB SHORTNESS OF BREATH; Start 04/01/17 at 23:15 Sodium Chloride 1,000 ml @ 100 mls/hr Q10H IV Last administered on 04/02/17 08:41; Start 04/02/17 at 06:30 Aspirin (Ecotrin) 81 mg DAILY08 PO Last administered on 04/02/17 10:26; Start 04/02/17 at 09:30 Labetalol HCl (Normodyne) 20 mg 1X ONCE IVP ; Start 04/02/17 at 12:15; Stop at 12:16; Status UNV Active Scripts Active Ibuprofen 600 Mg Tablet 600 Mg PO Q6HRS PRN Ibuprofen 600 Mg Tablet 600 Mg PO Q8HRS Reported Aspir 81 (Aspirin) 81 Mg Tablet. 1 Tab PO DAILY Vitals/I & O Vital Sign - Last 24 Hours 04/01/17 04/01/17 04/01/17 04/01/17 13:50 14:05 14:35 14:59 Temp 98.7 98.7 Pulse 97 112 91 Resp 18 20 18 20 B/P (MAP) 173/101 (125) 180/134 (149) 187/117 (140) Pulse Ox 98 98 96 O2 Delivery Room Air Room Air Room Air 04/01/17 04/01/17 04/01/17 04/01/17 15:05 15:35 16:10 16:44 Pulse 95 84 80 80 Resp 19 19 18 18 B/P (MAP) 198/118 (144) 188/130 (149) 166/110 (128) 177/123 (141) Pulse Ox 97 97 97 97 O2 Delivery Room Air Room Air Room Air Room Air 04/01/17 04/01/17 04/01/17 04/01/17 16:50 17:45 17:53 18:32 Pulse 84 86 Resp 19 20 20 B/P (MAP) 185/123 (143) 192/110 (137) Pulse Ox 97 98 O2 Delivery Room Air Room Air Room Air 04/01/17 04/01/17 04/01/17 04/01/17 19:50 21:25 21:30 21:30 Temp 97.6 97.6 97.6 97.6 Pulse 92 89 83 Resp 20 19 18 B/P (MAP) 170/88 (115) 173/113 (133) 173/83 (113) Pulse Ox 98 93 93 O2 Delivery Room Air Room Air Room Air Room Air 5/24/17 5/24/17 5/25/17 5/25/17 22:57 23:00 01:53 03:00 Temp 97.5 98.1 97.5 98.1 Pulse 87 91 Resp 16 19 15 19 B/P (MAP) 169/105 (126) 160/107 (124) Pulse Ox 96 98 97 O2 Delivery Room Air Room Air Room Air Room Air 04/02/17 04/02/17 04/02/17 04/02/17 03:59 04:08 05:00 05:20 Pulse 87 Resp 20 16 16 B/P (MAP) 160/107 Pulse Ox 96 O2 Delivery Room Air Room Air Room Air 04/02/17 04/02/17 04/02/17 04/02/17 07:30 08:41 10:28 10:30 Temp 99.5 97.7 99.5 97.7 Pulse 98 98 80 Resp 18 20 B/P (MAP) 180/99 (126) 180/99 188/113 (138) Pulse Ox 93 96 94 O2 Delivery Room Air Room Air Room Air Intake and Output 04/01/17 04/01/17 04/02/17 15:00 23:00 07:00 Intake Total 1154 ml Balance 1154 ml ADEEL MONTANEZ MD April 02, 2017 12:15
[2017-04-02] MEDS ORDERED: ACETAMINOPHEN 325 MG TABLET. PO PRN (12:30)
[2017-04-02] MEDS: hydroCHLOROthiazide 12.5 MG CAPSULE PO SCH (13:19)
[2017-04-02] MEDS: LISINOPRIL 20 MG TABLET PO SCH (13:19)
[2017-04-02] MEDS: CYCLOBENZAPRINE 10 MG TABLET. PO SCH ×2 (13:19→19:57)
[2017-04-02 14:42] VITALS: BP 158/97
--- NOTE | 2017-04-02 15:20 | CARD ---
APPROVED REPORT EXAM: Two-dimensional and M-mode echocardiogram with Doppler and color Doppler. Other Information Quality : Average Rhythm : NSR INDICATION Hypertension/HCVD 2D DIMENSIONS RVDd3.3 (2.9-3.5cm)Left Atrium(2D)4.4 (1.6-4.0cm) IVSd1.3 (0.7-1.1cm)Aortic Root(2D)3.1 (2.0-3.7cm) LVDd5.3 (3.9-5.9cm)LVOT Diameter2.3 (1.8-2.4cm) PWd1.3 (0.7-1.1cm)LVDs3.3 (2.5-4.0cm) FS (%) 35.3 %SV91.8 ml LVEF(%)64.8 (>50%) Aortic Valve AoV Peak Zi.167.2cm/sAoV VTI28.0cm AO Peak GR.11.2mmHgLVOT Peak Zi.117.8cm/s LVOT VTI 22.43cmAO Mean GR.7mmHg MATTHEW (VMAX)2.57el9YUZ (VTI)3.24cm2 Mitral Valve MV E Gdwhmkqs234.6cm/sMV DECEL RSBT044gr MV A Byloivak98.3cm/sMV HRJ51sk E/A Ratio1.2MV A Snzrxdix38gx MVA (PHT)3.98cm2 TDI E/Lateral E'11.5E/Medial E'12.2 Pulmonary Valve PV Peak Dchozscn004.9cm/sPV Peak Grad.6mmHg RVOT VTI18.7cm Tricuspid Valve TR P. [id number]/sRAP [id number] TR Peak Gr.70nvOnCHPF57kxXy LEFT VENTRICLE The left ventricle is normal size. There is borderline to mild concentric left ventricular hypertroph y. Left ventricle systolic function is normal. The Ejection Fraction is 60-65%. There is normal LV se gmental wall motion. The left ventricular diastolic function and filling is normal for age. There is no ventricular septal defect visualized. RIGHT VENTRICLE The right ventricle is normal size. The right ventricular systolic function is normal. ATRIA The left atrium is borderline dilated. The right atrium size is normal. The interatrial septum is int act with no evidence for an atrial septal defect or patent foramen ovale as noted on 2-D or Doppler i maging. AORTIC VALVE The aortic valve is normal in structure and function. The aortic valve is trileaflet. Doppler and Col or Flow revealed no significant aortic regurgitation. There is no significant aortic valvular stenosi s. MITRAL VALVE The mitral valve is normal in structure and function. There is no mitral valve stenosis. Doppler and Color Flow revealed no mitral valve regurgitation noted. TRICUSPID VALVE The tricuspid valve is normal in structure and function. Doppler and Color Flow revealed trace to mil d tricuspid regurgitation. The PA pressure was estimated at 32 mmHg. There is no tricuspid valve sten osis. PULMONIC VALVE The pulmonic valve is not well visualized. Doppler and Color Flow revealed no pulmonic valvular regur gitation. There is no pulmonic valvular stenosis. GREAT VESSELS The aortic root is normal in size. Normal pulmonary venous flow (Doppler). The IVC is normal in size and collapses >50% with inspiration. PERICARDIAL EFFUSION There is no evidence of significant pericardial effusion. Critical Notification Critical Value: No <Conclusion> Left ventricle systolic function is normal. The Ejection Fraction is 60-65%. There is normal LV segmental wall motion.
--- NOTE | 2017-04-02 16:35 | HP ---
ADMIT DATE: 04/01/2017 CHIEF COMPLAINT: Chest pain. HISTORY OF PRESENT ILLNESS: This is a 46-year-old -[place] female with prior history of hypertension and type 2 diabetes mellitus who presented to the ER with complaints of chest pain. The patient states the chest pain has been there for couple of weeks; however, last few days, pain is getting slowly worse, she is not able to move. Even rotation of her torso makes her pain worse. The pain is located in the right upper quadrant abdominal region and the right chest and also she cannot breathe well. She denies any history of PE in the past. Denies any fever, chills, or travel history. Currently, she is not working. Denies any syncope or palpitations. She was not able to complete the CTA in the ER. The patient has been asked to see whether she can go home or she would like to stay in hospital and the patient would like to stay in the hospital. PAST MEDICAL HISTORY: Anxiety, type 2 diabetes mellitus, hypertension. PAST SURGICAL HISTORY: Cholecystectomy, PERSONAL HISTORY: Smoking, presently less than FAMILY HISTORY: Hypertension. ALLERGIES: NKDA. REVIEW OF SYSTEMS AND PHYSICAL EXAMINATION: Please see my electronic H and P. LABORATORY FINDINGS: CBC within normal limits. Chemistry within normal limits including first set of troponins. IMAGING STUDIES: 1. CTA of the chest, not able to read well, limited evaluation, may need repeat imaging studies. 2. Chest x-ray, no focal reports are seen. 3. Ultrasound of the abdomen, status post cholecystectomy. Increased hepatic echogenicity, history of hepatic steatosis. 4. EKG, I am not able to read the image, but as per the ER report, No ST , T wave changes ASSESSMENT AND PLAN: 1. Intractable chest pain, mostly musculoskeletal, needs to rule out acute coronary syndrome and pulmonary embolism, due to risk factors, 2. Morbid obesity, BMI 48. 3. Uncontrolled hypertension, currently not on any medications at home. 4. Diabetes mellitus with mild hyperglycemia. PLAN: 1. She has been admitted to the hospital for a repeat CT of chest to rule out PE and we will get 2 sets of troponin. The patient has mild tenderness in her back while she is having rotatory movement, also she has a stiffness, most likely her pain is related to musculoskeletal in nature; however, given her limited activity and acute nature of the symptoms, we will rule out PE. 2. For hypertension control, the patient is not taking any medication. She has been placed on p.r.n. hydralazine for systolic blood pressure more than 160. 3. Pain controlled with IV morphine 2-4 mg q. 2 hours as needed. 4. Supplemental oxygen as needed. 5. If the patient's symptoms improve by tomorrow, she will be discharged; however, the patient's symptoms get worse, we will consult cardiology and change her status to inpatient. 6. Labs reviewed. 7. CBC, BMP in a.m. with troponin. PASTOR MOELLER MD DR: ISRA/jana JOB#: [id number] / [id number] RENETTA
[2017-04-02 19:00] VITALS: BP 186/100
[2017-04-02] MEDS ORDERED: IBUPROFEN 600 MG TABLET. PO PRN (19:00)
[2017-04-02] MEDS: oxyCODONE/APAP 5/325 1 TAB TABLET PO PRN (21:42)
[2017-04-02 23:00] VITALS: BP 199/107
[2017-04-03 03:00] VITALS: BP 182/117
[2017-04-03] MEDS: oxyCODONE/APAP 5/325 1 TAB TABLET PO PRN ×2 (03:01→08:14)
[2017-04-03 03:02] VITALS: BP 182/117
[2017-04-03] MEDS: hydrALAZINE 20 MG/ML VIAL. IVP PRN ×2 (03:03→11:04)
[2017-04-03 06:00] LABS: BASO # 0.1 x10^3/uL (0.0-0.2); BASO % 1 % (0-3); EOS % 2 % (0-3); HEMATOCRIT 36.4 % (36.0-47.0); HEMOGLOBIN 11.3 g/dL (12.0-15.5); LYMPH # 3.4 x10^3/uL (1.0-4.8); LYMPH % 43 % (24-48); MEAN CORPUSCULAR HEMOGLOBIN 26 pg (25-35); MEAN CORPUSCULAR HGB CONC 31 g/dL (31-37); MEAN CORPUSCULAR VOLUME 82 fL (79-100); MONO % 5 % (0-9); NEUT % 49 % (31-73); PLATELET COUNT 269 x10^3/uL (140-400); RED BLOOD COUNT 4.42 x10^6/uL (3.50-5.40); RED CELL DISTRIBUTION WIDTH 15.8 % (11.5-14.5); WHITE BLOOD COUNT 7.8 x10^3/uL (4.0-11.0)
[2017-04-03 06:09] LABS: CALCIUM 9.5 mg/dL (8.5-10.1); CREATININE 0.8 mg/dL (0.6-1.0); GFR 93.9; POTASSIUM 4.1 mmol/L (3.5-5.1)
[2017-04-03 07:40] VITALS: BP 149/99
[2017-04-03] MEDS: ASPIRIN ENTERIC COATED 81 MG TABLET.DR. PO SCH (08:14)
[2017-04-03] MEDS: hydroCHLOROthiazide 12.5 MG CAPSULE PO SCH (08:14)
[2017-04-03] MEDS: LISINOPRIL 20 MG TABLET PO SCH (08:14)
[2017-04-03] MEDS: CYCLOBENZAPRINE 10 MG TABLET. PO SCH (08:14)
[2017-04-03 10:30] VITALS: BP 173/115
[2017-04-03 11:04] VITALS: BP 173/115
[2017-04-03] MEDS ORDERED: AMLO5TAB4 PO (11:44)
--- NOTE | 2017-04-03 11:49 | PDOC3 ---
Discharge Summary Visit Information Date of Admission: April 01, 2017 Date of Discharge: April 03, 2017 Admitting Diagnosis Comment: 1. COstochondritis 2. HTN URGENCY 3. HEadaches 4. Obesity 5. NEck spasms Final Diagnosis Problems Medical Problems: (1) Back pain Status: Acute (2) Chest pain Status: Acute (3) Right upper quadrant abdominal pain Status: Acute Brief Hospital Course Allergies Allergies Coded Allergies Type Severity Reaction Last Updated Verified No Known Drug Allergies 03/24/16 No Vital Signs Vital Signs Date Time Temp Pulse Resp B/P (MAP) Pulse Ox O2 Delivery O2 Flow Rate FiO2 04/03/17 11:04 99 173/115 04/03/17 09:15 Room Air 04/03/17 07:40 97.7 20 97 97.7 Lab Results Laboratory Tests Test 04/01/17 14:45 04/01/17 15:30 04/02/17 04:35 04/02/17 04:55 White Blood Count 9.9 x10^3/uL (4.0-11.0) 9.8 x10^3/uL (4.0-11.0) Red Blood Count 4.62 x10^6/uL (3.50-5.40) 4.38 x10^6/uL (3.50-5.40) Hemoglobin 12.0 g/dL (12.0-15.5) 11.6 g/dL (12.0-15.5) Hematocrit 37.7 % (36.0-47.0) 34.9 % (36.0-47.0) Mean Corpuscular Volume 82 fL (79-100) 80 fL (79-100) Mean Corpuscular Hemoglobin 26 pg (25-35) 27 pg (25-35) Mean Corpuscular Hemoglobin Concent 32 g/dL (31-37) 33 g/dL (31-37) Red Cell Distribution Width 14.9 % (11.5-14.5) 14.7 % (11.5-14.5) Platelet Count 285 x10^3/uL (140-400) 274 x10^3/uL (140-400) Neutrophils (%) (Auto) 58 % (31-73) 51 % (31-73) Lymphocytes (%) (Auto) 34 % (24-48) 40 % (24-48) Monocytes (%) (Auto) 6 % (0-9) 7 % (0-9) Eosinophils (%) (Auto) 1 % (0-3) 2 % (0-3) Basophils (%) (Auto) 1 % (0-3) 1 % (0-3) Neutrophils # (Auto) 5.7 x10^3uL (1.8-7.7) 5.0 x10^3uL (1.8-7.7) Lymphocytes # (Auto) 3.4 x10^3/uL (1.0-4.8) 3.9 x10^3/uL (1.0-4.8) Monocytes # (Auto) 0.6 x10^3/uL (0.0-1.1) 0.6 x10^3/uL (0.0-1.1) Eosinophils # (Auto) 0.1 x10^3/uL (0.0-0.7) 0.2 x10^3/uL (0.0-0.7) Basophils # (Auto) 0.1 x10^3/uL (0.0-0.2) 0.1 x10^3/uL (0.0-0.2) D-Dimer (Lou) 0.71 ug/mlFEU (0.00-0.50) Sodium Level 140 mmol/L (136-145) 139 mmol/L (136-145) Potassium Level 3.8 mmol/L (3.5-5.1) 4.4 mmol/L (3.5-5.1) Chloride Level 102 mmol/L (98-107) 101 mmol/L (98-107) Carbon Dioxide Level 31 mmol/L (21-32) 27 mmol/L (21-32) Anion Gap 7 (6-14) 11 (6-14) Blood Urea Nitrogen 10 mg/dL (7-20) 15 mg/dL (7-20) Creatinine 1.0 mg/dL (0.6-1.0) 0.9 mg/dL (0.6-1.0) Estimated GFR (Cockcroft-Gault) 72.5 81.9 BUN/Creatinine Ratio 10 (6-20) Glucose Level 238 mg/dL (70-99) 170 mg/dL (70-99) Calcium Level 9.3 mg/dL (8.5-10.1) 9.1 mg/dL (8.5-10.1) Total Bilirubin 0.2 mg/dL (0.2-1.0) Aspartate Amino Transf (AST/SGOT) 16 U/L (15-37) Alanine Aminotransferase (ALT/SGPT) 17 U/L (14-59) Alkaline Phosphatase 111 U/L (46-116) Troponin I Quantitative < 0.017 ng/mL (0.000-0.055) < 0.017 ng/mL (0.000-0.055) Total Protein 8.4 g/dL (6.4-8.2) Albumin 3.2 g/dL (3.4-5.0) Albumin/Globulin Ratio 0.6 (1.0-1.7) Lipase 108 U/L (73-393) Urine Collection Type Unknown Urine Color Jeanne Urine Clarity Clear Urine pH 6.0 Urine Specific [place] >=1.030 Urine Protein 30 mg/dL (NEG-TRACE) Urine Glucose (UA) 500 mg/dL (NEG) Urine Ketones (Stick) Trace mg/dL (NEG) Urine Blood Negative (NEG) Urine Nitrite Negative (NEG) Urine Bilirubin Small (NEG) Urine Urobilinogen Dipstick 1.0 mg/dL (0.2 mg/dL) Urine Leukocyte Esterase Negative (NEG) Urine RBC 0 /HPF (0-2) Urine WBC Occ /HPF (0-4) Urine Squamous Epithelial Cells Few /LPF Urine Bacteria 0 /HPF (0-FEW) Urine Mucus Marked /LPF Urine Test Negative (NEG) Test 04/02/17 12:15 04/02/17 17:45 04/03/17 05:00 Troponin I Quantitative < 0.017 ng/mL (0.000-0.055) < 0.017 ng/mL (0.000-0.055) White Blood Count 7.8 x10^3/uL (4.0-11.0) Red Blood Count 4.42 x10^6/uL (3.50-5.40) Hemoglobin 11.3 g/dL (12.0-15.5) Hematocrit 36.4 % (36.0-47.0) Mean Corpuscular Volume 82 fL (79-100) Mean Corpuscular Hemoglobin 26 pg (25-35) Mean Corpuscular Hemoglobin Concent 31 g/dL (31-37) Red Cell Distribution Width 15.8 % (11.5-14.5) Platelet Count 269 x10^3/uL (140-400) Neutrophils (%) (Auto) 49 % (31-73) Lymphocytes (%) (Auto) 43 % (24-48) Monocytes (%) (Auto) 5 % (0-9) Eosinophils (%) (Auto) 2 % (0-3) Basophils (%) (Auto) 1 % (0-3) Neutrophils # (Auto) 3.8 x10^3uL (1.8-7.7) Lymphocytes # (Auto) 3.4 x10^3/uL (1.0-4.8) Monocytes # (Auto) 0.4 x10^3/uL (0.0-1.1) Eosinophils # (Auto) 0.1 x10^3/uL (0.0-0.7) Basophils # (Auto) 0.1 x10^3/uL (0.0-0.2) Sodium Level 139 mmol/L (136-145) Potassium Level 4.1 mmol/L (3.5-5.1) Chloride Level 99 mmol/L (98-107) Carbon Dioxide Level 30 mmol/L (21-32) Anion Gap 10 (6-14) Blood Urea Nitrogen 14 mg/dL (7-20) Creatinine 0.8 mg/dL (0.6-1.0) Estimated GFR (Cockcroft-Gault) 93.9 Glucose Level 171 mg/dL (70-99) Calcium Level 9.5 mg/dL (8.5-10.1) Laboratory Tests Test 04/02/17 12:15 04/02/17 17:45 04/03/17 05:00 Troponin I Quantitative < 0.017 ng/mL (0.000-0.055) < 0.017 ng/mL (0.000-0.055) White Blood Count 7.8 x10^3/uL (4.0-11.0) Red Blood Count 4.42 x10^6/uL (3.50-5.40) Hemoglobin 11.3 g/dL (12.0-15.5) Hematocrit 36.4 % (36.0-47.0) Mean Corpuscular Volume 82 fL (79-100) Mean Corpuscular Hemoglobin 26 pg (25-35) Mean Corpuscular Hemoglobin Concent 31 g/dL (31-37) Red Cell Distribution Width 15.8 % (11.5-14.5) Platelet Count 269 x10^3/uL (140-400) Neutrophils (%) (Auto) 49 % (31-73) Lymphocytes (%) (Auto) 43 % (24-48) Monocytes (%) (Auto) 5 % (0-9) Eosinophils (%) (Auto) 2 % (0-3) Basophils (%) (Auto) 1 % (0-3) Neutrophils # (Auto) 3.8 x10^3uL (1.8-7.7) Lymphocytes # (Auto) 3.4 x10^3/uL (1.0-4.8) Monocytes # (Auto) 0.4 x10^3/uL (0.0-1.1) Eosinophils # (Auto) 0.1 x10^3/uL (0.0-0.7) Basophils # (Auto) 0.1 x10^3/uL (0.0-0.2) Sodium Level 139 mmol/L (136-145) Potassium Level 4.1 mmol/L (3.5-5.1) Chloride Level 99 mmol/L (98-107) Carbon Dioxide Level 30 mmol/L (21-32) Anion Gap 10 (6-14) Blood Urea Nitrogen 14 mg/dL (7-20) Creatinine 0.8 mg/dL (0.6-1.0) Estimated GFR (Cockcroft-Gault) 93.9 Glucose Level 171 mg/dL (70-99) Calcium Level 9.5 mg/dL (8.5-10.1) Brief Hospital Course Ms. Chakraborty is a 46 old obese AA female admitted for costochondritis, MSK on exam, did not consult Cards, but BP high, SBP 180s, needed to start lisinopril and HCTZ along with norvasc, As lisinopril and HCTZ was not helping her bP alone , Advised PCP establishment, pamphlet given. Echo done, ok COnsults: none Proc: echo - normal DispO; home Pt seen and examined time 32 min s> 5p% counselling and education Discharge Information Condition at Discharge: Improved, Stable Disposition/Orders: D/C to Home Scheduled Aspirin (Aspir 81), 1 TAB PO DAILY, (Reported) Ibuprofen (Ibuprofen), 600 MG PO Q8HRS Scheduled PRN Ibuprofen (Ibuprofen), 600 MG PO Q6HRS PRN for INFLAMMATION ADEEL MONTANEZ MD April 03, 2017 11:49
== END 2017-04-03 13:07 | disposition home or self-care (01) ==
LOC: ER 13:35 → 5 NORTH 17:30
PROVIDERS: ADMIT Internal Medicine; ATTEND Internal Medicine
DX: M94.0 Chondrocostal junction syndrome [Tietze] (principal); I16.0 Hypertensive urgency; I10 Essential (primary) hypertension; F41.9 Anxiety disorder, unspecified; E11.65 Type 2 diabetes mellitus with hyperglycemia; E66.01 Morbid (severe) obesity due to excess calories; Z68.42 Body mass index [BMI] 45.0-49.9, adult; Z87.891 Personal history of nicotine dependence
CPT/HCPCS: 36415; 71020; 71275; 76705; 80048; 80053; 81001; 81025; 83690; 84484; 85027; 85379; 93005; 93306; 96361; 96372; 96374; 96375; 96376; 99285; G0378; J0360; J1650; J2270; J2405; J3010; J3490; J7030; Q9967; G0379

== ENCOUNTER 2019-08-23 22:03 | Inpatient (IN) | payer SELFPAY ==
[~2019-08-23] VITALS: Ht 175.3 cm; Wt 127.5 kg
[~2019-08-23 22:03] MED LIST changes: +AMLO5TAB4 PO; +ASPI-482 PO; +HYDR-3164 PO; -HYDR-971 PO; +LISI1TAB19 PO
[2019-08-24] VITALS (22 sets, daily range): BP systolic 116–156; BP diastolic 66–103
--- NOTE | 2019-08-24 01:41 | PHYS DOC ---
Past Medical History Past Medical History: Anxiety, Diabetes-Type II, Hypertension Past Surgical History: Cholecystectomy, , Other Additional Past Surgical Histo: left knee Alcohol Use: None Drug Use: None Adult General Chief Complaint Chief Complaint: MULTIPLE COMPLAINTS HPI HPI Patient is a 48 year old female who presents with complaint of cough and congestion. The patient's symptoms started 2 weeks ago. Was recently seen by her primary doctor and started on azithromycin and cough syrup. Despite treatment, patient states her symptoms are getting worse. Has been also noticing sores in her mouth. States that she has very sore throat. Has pain in her chest and back when she coughs. Has also been having worsening body aches especially in both of her lower extremities. She states overall she feels like she is getting worse and thus came to the emergency department for further evaluation. Does have history of hypertension and type 2 diabetes mellitus. Review of Systems Review of Systems Constitutional: Subjective fever and chills[] Eyes: Eye redness, blurred vision[] HENT: Sore throat[] Respiratory: Cough, congestion[] Cardiovascular: Chest pain[] GI: Nausea, denies abdominal pain, vomiting, bloody stools or diarrhea [] : Denies dysuria or hematuria [] Musculoskeletal: Back pain, myalgias[] Integument: Denies rash or skin lesions [] Neurologic: Headache, denies focal weakness or sensory changes [] All other systems were reviewed and found to be within normal limits, except as documented in this note. Current Medications Current Medications Current Medications Medications (Trade) Dose Ordered Sig/Jaylen Start Time Stop Time Status Last Admin Dose Admin Albuterol/ Ipratropium (Duoneb) 3 ml 1X ONCE 08/24/19 02:00 08/24/19 02:01 DC 08/24/19 02:29 3 ML Fentanyl Citrate (Fentanyl 2ml Vial) 50 mcg PRN Q15MIN PRN 08/24/19 01:45 08/25/19 01:44 Info (CONTRAST GIVEN -- Rx MONITORING) 1 each PRN DAILY PRN 08/24/19 04:00 08/26/19 03:59 Insulin Human Regular 150 unit/ Sodium Chloride 151.5 ml @ 0 mls/hr CONT PRN 08/24/19 03:45 Methylprednisolone Sodium Succinate (SOLU-Medrol 125MG VIAL) 125 mg 1X ONCE 08/24/19 02:00 08/24/19 02:01 DC 08/24/19 03:27 125 MG Ondansetron HCl (Zofran) 4 mg 1X ONCE 08/24/19 04:00 08/24/19 04:01 DC 08/24/19 03:27 4 MG Sodium Chloride 1,000 ml @ 1,000 mls/hr 1X ONCE 08/24/19 04:00 08/24/19 04:59 Allergies Allergies Allergies Coded Allergies Type Severity Reaction Last Updated Verified No Known Drug Allergies 03/24/16 No Physical Exam Physical Exam Constitutional: Alert, afebrile, appears in moderate discomfort. [] HENT: Normocephalic, atraumatic, bilateral external ears normal, oral mucous membranes dry and erythematous, occasional white plaque lesions consistent with oral thrush, no oral exudates, nose normal. [] Eyes: PERRLA, EOMI, conjunctiva normal, no discharge. [] Neck: Normal range of motion, no tenderness, supple, no stridor. [] Cardiovascular: Tachycardia, regular rhythm no murmur [] Lungs & Thorax: Prolonged expiratory phase, rhonchi bilaterally, rales[] Abdomen: Bowel sounds normal, soft, no tenderness, no masses, no pulsatile masses. [] Skin: Warm, dry, no erythema, no rash. [] Back: No tenderness, no CVA tenderness. [] Extremities: No tenderness, no cyanosis, no clubbing, ROM intact, no edema. [] Neurologic: Alert and oriented X 3, normal motor function, normal sensory function, no focal deficits noted. [] Current Patient Data Vital Signs Vital Signs Date Time Temp Pulse Resp B/P (MAP) Pulse Ox O2 Delivery O2 Flow Rate FiO2 08/24/19 03:30 100 16 134/91 (105) 93 Room Air 08/24/19 00:29 98.1 98.1 Lab Values Laboratory Tests Test 08/24/19 01:00 08/24/19 01:07 08/24/19 02:05 08/24/19 02:45 Urine Collection Type Unknown Urine Color Yellow Urine Clarity Clear Urine pH 6.0 Urine Specific [place] >=1.030 Urine Protein Negative mg/dL (NEG-TRACE) Urine Glucose (UA) >=1000 mg/dL (NEG) Urine Ketones (Stick) Negative mg/dL (NEG) Urine Blood Negative (NEG) Urine Nitrite Negative (NEG) Urine Bilirubin Negative (NEG) Urine Urobilinogen Dipstick 0.2 mg/dL (0.2 mg/dL) Urine Leukocyte Esterase Negative (NEG) Urine RBC Rare /HPF (0-2) Urine WBC Rare /HPF (0-4) Urine Squamous Epithelial Cells Few /LPF Urine Bacteria 0 /HPF (0-FEW) Urine Yeast Present /HPF POC Urine HCG, Qualitative Hcg negative (Negative) White Blood Count 7.6 x10^3/uL (4.0-11.0) Red Blood Count 4.65 x10^6/uL (3.50-5.40) Hemoglobin 13.6 g/dL (12.0-15.5) Hematocrit 40.6 % (36.0-47.0) Mean Corpuscular Volume 87 fL (79-100) Mean Corpuscular Hemoglobin 29 pg (25-35) Mean Corpuscular Hemoglobin Concent 34 g/dL (31-37) Red Cell Distribution Width 14.8 % (11.5-14.5) H Platelet Count 256 x10^3/uL (140-400) Neutrophils (%) (Auto) 64 % (31-73) Lymphocytes (%) (Auto) 28 % (24-48) Monocytes (%) (Auto) 6 % (0-9) Eosinophils (%) (Auto) 2 % (0-3) Basophils (%) (Auto) 1 % (0-3) Neutrophils # (Auto) 4.9 x10^3/uL (1.8-7.7) Lymphocytes # (Auto) 2.1 x10^3/uL (1.0-4.8) Monocytes # (Auto) 0.4 x10^3/uL (0.0-1.1) Eosinophils # (Auto) 0.1 x10^3/uL (0.0-0.7) Basophils # (Auto) 0.0 x10^3/uL (0.0-0.2) D-Dimer (Lou) 1.47 ug/mlFEU (0.00-0.50) H Sodium Level 126 mmol/L (136-145) L Potassium Level 3.9 mmol/L (3.5-5.1) Chloride Level 87 mmol/L (98-107) L Carbon Dioxide Level 29 mmol/L (21-32) Anion Gap 10 (6-14) Blood Urea Nitrogen 7 mg/dL (7-20) Creatinine 1.2 mg/dL (0.6-1.0) H Estimated GFR (Cockcroft-Gault) 58.3 BUN/Creatinine Ratio 6 (6-20) Glucose Level 835 mg/dL (70-99) *H Calcium Level 10.7 mg/dL (8.5-10.1) H Total Bilirubin 0.4 mg/dL (0.2-1.0) Aspartate Amino Transferase (AST) 13 U/L (15-37) L Alanine Aminotransferase (ALT) 16 U/L (14-59) Alkaline Phosphatase 137 U/L (46-116) H Creatine Kinase 101 U/L (26-192) Creatine Kinase MB (Mass) 0.5 ng/mL (0.0-3.6) Creatine Kinase MB Relative Index 0.5 % (0-4) Troponin I Quantitative < 0.017 ng/mL (0.000-0.055) YV-Iuc-V-Type Natriuretic Peptide 70 pg/mL (0-124) Total Protein 9.0 g/dL (6.4-8.2) H Albumin 3.6 g/dL (3.4-5.0) Albumin/Globulin Ratio 0.7 (1.0-1.7) L Laboratory Tests 08/24/19 02:05 Laboratory Tests 08/24/19 02:45 EKG EKG Interpreted by me: Heart rate 102, sinus tachycardia, normal axis, normal inter vals, no acute ST/T-wave abnormalities present[] Radiology/Procedures Radiology/Procedures [facility] [address] [facility] [place] [address] IMAGING REPORT Signed PATIENT: SOYFA ORDAZ DACCOUNT: [id number] : 1970 LOCATION: [facility] ICU AGE: 48 SEX: F EXAM STATUS: ADM IN ORD. PHYSICIAN: SEYMOUR LIZ MD REASON: altered mental status PROCEDURE: CT HEAD WO CONTRAST CT head without contrast: Reason for examination: Altered mental status. Comparison is made to previous study dated 01/25/2007. Axial images were obtained through the brain. No contrast was administered. Exposure: One or more of the following individualized dose reduction techniques were utilized for this examination: 1. Automated exposure control 2. Adjustment of the mA and/or kV according to patient size 3. Use of iterative reconstruction technique. Ventricular systems are symmetric and not dilated. No midline shift is seen. There is no evidence of intracranial hemorrhage, infarct, mass or edema. No abnormalities are seen at the orbits. The paranasal sinuses and mastoid air cells are clear. No acute abnormality seen in the skull. IMPRESSION: No acute intracranial abnormality evident. Electronically signed by: Sera Mays MD (08/24/2019 4:14 AM) [facility] DICTATED and SIGNED BY: SERA MAYS MD DATE: 08/24/19 0414 [facility] [address] [place] [address] IMAGING REPORT Signed PATIENT: SOFYA ORDAZ DACCOUNT: [id number] : 1970 LOCATION: ER AGE: 48 SEX: F EXAM STATUS: REG ER ORD. PHYSICIAN: SEYMOUR LIZ MD REASON: cough PROCEDURE: PORTABLE CHEST 1V Chest AP portable at 0139: Reason for examination: Cough. Comparison is made to previous study dated 04/01/2017. The heart size is normal. Mediastinum is unremarkable. There continues to be some elevation of the right hemidiaphragm. Lung castro are clear. No acute bony abnormalities are seen. Impression: No acute cardiopulmonary disease. Electronically signed by: Sera Mays MD (08/24/2019 2:15 AM) [facility] DICTATED and SIGNED BY: SERA MAYS MD DATE: 08/24/19 0215 [] Course & Med Decision Making Course & Med Decision Making Pertinent Labs and Imaging studies reviewed. (See chart for details) Patient started on IV fluids in the emergency department. Patient's blood work shows a critically elevated blood sugar of 835. The patient shows significant dehydration on exam and the patient's elevated blood sugar is likely contributing to her symptoms. Patient does not have an anion gap and no ketones in the urine. The patient's current hyperglycemic state does not appear to be consistent with diabetic ketoacidosis, however patient does appear to be in a h yperosmolar state. Patient's neurologic status shows mild drowsiness, however patient is responding to questions appropriately at this time. The patient will need admission to the hospital for further IV hydration and control of blood sugar. Given the critically elevated blood sugar, insulin drip will be appropriate for control at this time. I spoke with Dr. Rouse who has agreed to admit patient for further care. Critical care time excluding procedures: 50 minutes Dragon Disclaimer Dragon Disclaimer This electronic medical record was generated, in whole or in part, using a voice recognition dictation system. Departure Departure Impression: Primary Impression: Diabetes mellitus with hyperosmolarity Additional Impressions: Dehydration Chest pain Cough Disposition: ADMITTED INPATIENT Admitting Physician: JASE Condition: GUARDED Referrals: NO PCP (PCP) Problem Qualifiers Additional Impressions: Chest pain Chest pain type: unspecified Qualified Codes: R07.9 - Chest pain, unspecified SEYMOUR LIZ MD Aug 24, 2019 01:40
[2019-08-24 01:45] LABS: BILIRUBIN,URINE NEGATIVE (NEG); CLARITY,URINE CLEAR; COLOR,URINE YELLOW; NITRITE,URINE NEGATIVE (NEG); PROTEIN,URINE NEGATIVE (NEG-TRACE); UROBILINOGEN,URINE 0.2 mg/dL (0.2 mg/dL)
[2019-08-24] MEDS ORDERED: fentaNYL PF VIAL 100 MCG/2 ML VIAL IV PRN (01:45)
[2019-08-24 01:49] LABS: SQUAMOUS EPITHELIAL CELL,UR FEW /LPF
[2019-08-24 01:50] LABS: BACTERIA,URINE 0 /HPF (0-FEW); RBC,URINE RARE /HPF (0-2); WBC,URINE RARE /HPF (0-4); YEAST,URINE PRESENT /HPF
[2019-08-24] MEDS ORDERED: methylPREDNISolone SOD SUCC PF 125 MG/2 ML VIAL. IV ONE (02:00)
[2019-08-24] MEDS ORDERED: IV NORMAL SALINE 1000ML BAG 1,000 ML IV SCH (02:00)
[2019-08-24] MEDS ORDERED: IPRATRPIUM/ALBUTEROL 0.5/2.5MG 3 ML NEBU. NEB ONE (02:00)
--- NOTE | 2019-08-24 02:18 | RAD ---
Chest AP portable at 0139: Reason for examination: Cough. Comparison is made to previous study dated 04/01/2017. The heart size is normal. Mediastinum is unremarkable. There continues to be some elevation of the right hemidiaphragm. Lung castro are clear. No acute bony abnormalities are seen. Impression: No acute cardiopulmonary disease. Electronically signed by: Macy Stewart MD (08/24/2019 2:15 AM) [facility]
[2019-08-24 02:27] LABS: BASO % 1 % (0-3); EOS # 0.1 x10^3/uL (0.0-0.7); EOS % 2 % (0-3); HEMATOCRIT 40.6 % (36.0-47.0); HEMOGLOBIN 13.6 g/dL (12.0-15.5); LYMPH # 2.1 x10^3/uL (1.0-4.8); LYMPH % 28 % (24-48); MEAN CORPUSCULAR HEMOGLOBIN 29 pg (25-35); MEAN CORPUSCULAR HGB CONC 34 g/dL (31-37); MEAN CORPUSCULAR VOLUME 87 fL (79-100); MONO # 0.4 x10^3/uL (0.0-1.1); MONO % 6 % (0-9); NEUT # 4.9 x10^3/uL (1.8-7.7); NEUT % 64 % (31-73); PLATELET COUNT 256 x10^3/uL (140-400); RED BLOOD COUNT 4.65 x10^6/uL (3.50-5.40); RED CELL DISTRIBUTION WIDTH 14.8 % (11.5-14.5); WHITE BLOOD COUNT 7.6 x10^3/uL (4.0-11.0)
[2019-08-24 03:17] LABS: CALCIUM 10.7 mg/dL (8.5-10.1); CREATININE 1.2 mg/dL (0.6-1.0); GFR 58.3; POTASSIUM 3.9 mmol/L (3.5-5.1)
[2019-08-24 03:19] LABS: ALBUMIN 3.6 g/dL (3.4-5.0); ALBUMIN/GLOBULIN RATIO 0.7 (1.0-1.7); TOTAL BILIRUBIN 0.4 mg/dL (0.2-1.0)
[2019-08-24] MEDS ORDERED: IV NORMAL SALINE 1000ML BAG 1,000 ML IV ONE (04:00)
[2019-08-24] MEDS ORDERED: CONTRAST GIVEN. MC PRN (04:00)
[2019-08-24] MEDS ORDERED: ONDANSETRON PF 4 MG/2 ML VIAL. IVP ONE (04:00)
--- NOTE | 2019-08-24 04:17 | RAD ---
CT head without contrast: Reason for examination: Altered mental status. Comparison is made to previous study dated 01/25/2007. Axial images were obtained through the brain. No contrast was administered. Exposure: One or more of the following individualized dose reduction techniques were utilized for this examination: 1. Automated exposure control 2. Adjustment of the mA and/or kV according to patient size 3. Use of iterative reconstruction technique. Ventricular systems are symmetric and not dilated. No midline shift is seen. There is no evidence of intracranial hemorrhage, infarct, mass or edema. No abnormalities are seen at the orbits. The paranasal sinuses and mastoid air cells are clear. No acute abnormality seen in the skull. IMPRESSION: No acute intracranial abnormality evident. Electronically signed by: Macy Stewart MD (08/24/2019 4:14 AM) [facility]
[2019-08-24] MEDS ORDERED: IOHEXOL 350 MG/ML 100 ML VIAL. IV ONE (04:30)
[2019-08-24] MEDS: INSULIN REGULAR VIAL 150 UNIT in 0.9 % SODIUM CHLORIDE 150ML 150 ML IV PRN ×3 (04:31→22:24)
--- NOTE | 2019-08-24 04:51 | RAD ---
CT angiogram of the chest with contrast: Reason for examination: Chest pain. Positive d-dimer. Helical images were obtained through the chest with intravenous administration of 75 cc Omnipaque 350 using PE protocol. 3-D MIPS reconstruction was performed in sagittal and coronal planes. Examination was compromised by patient compliance. Exposure: One or more of the following individualized dose reduction techniques were utilized for this examination: 1. Automated exposure control 2. Adjustment of the mA and/or kV according to patient size 3. Use of iterative reconstruction technique. No abnormality seen at the thyroid gland. The trachea and mainstem bronchi show no intraluminal lesions. No abnormality seen at the esophagus. The thoracic aorta shows no aneurysmal dilatation or dissection. The heart size is normal with no pericardial effusion. There is inadequate contrast in the pulmonary arteries to exclude pulmonary embolus. The lung castro show no infiltrates, pneumothorax or pleural effusion. No abnormality seen at the liver, spleen, adrenal glands or pancreas. Gallbladder surgically absent. No acute bony abnormalities are seen. IMPRESSION: No abnormality seen in the thoracic aorta. Lung castro are clear. PE cannot be excluded due to inadequate contrast in the pulmonary arteries due to timing of the contrast bolus related to patient compliance. The ER physician was notified but did not want to repeat the examination at this time. Electronically signed by: Macy Stewart MD (08/24/2019 4:48 AM) [facility]
[2019-08-24] MEDS ORDERED: OXYC30TA64 PO (06:18)
[2019-08-24] MEDS ORDERED: METF10007 PO (06:18)
--- NOTE | 2019-08-24 06:47 | EKG ---
[facility] [address] [place] [address] Test Date: 2019-08-24 Test Time: 02:11:15 Pat Name: SOFYA ORDAZ Department: Room: 108 1 Gender: F It Systems Manager: [id number] : 1970 Requested By: SEYMOUR LIZ Order Number: [id number] Reading MD: Clark Soliz MD Measurements Intervals [place] Rate: 102 P: 38 WI: 138 QRS: -5 QRSD: 96 T: 6 QT: 354 QTc: 466 Interpretive Statements SINUS TACHYCARDIA Electronically Signed On 08-30-2019 10:37:56 CDT by Clark Soliz MD
--- NOTE | 2019-08-24 06:47 | NUR ---
Pt admitted to ICU via ER bed. Pt immediately had to go to the restroom and walked to the bedside camode. Then pt walked to bed and was connected to ICU equipment. After pt was settled vital signs and blood sugar were taken. Blood sugar was too high to read so lab draw was ordered. Pt is drowsy and very hungry. Pt vital signs are stable, will continue to monitor.
[2019-08-24] MEDS: fentaNYL PF VIAL 100 MCG/2 ML VIAL IVP PRN ×6 (07:59→22:56)
[2019-08-24 08:04] LABS: CREATININE 1.2 mg/dL (0.6-1.0); GFR 58.3; MAGNESIUM 2.3 mg/dL (1.8-2.4); PHOSPHORUS 2.9 mg/dL (2.6-4.7); POTASSIUM 3.3 mmol/L (3.5-5.1)
--- NOTE | 2019-08-24 08:28 | NUR ---
SS following for discharge planning. Pt is self pay pt. HCFS following for self pay status. Pt is from home with spouse and is currently on room air. SS will continue to follow for discharge planning.
[2019-08-24] MEDS: IPRATRPIUM/ALBUTEROL 0.5/2.5MG 3 ML NEBU. NEB SCH ×4 (08:29→20:00)
[2019-08-24] MEDS ORDERED: MORP-15 PO (09:28)
[2019-08-24] MEDS ORDERED: PHEN37.5 PO (09:28)
[2019-08-24] MEDS: IV NORMAL SALINE 1000ML BAG 1,000 ML IV SCH (09:30)
[2019-08-24] MEDS ORDERED: POTASSIUM CHLORIDE 20 MEQ TABLET.ER. PO ONE (11:00)
--- NOTE | 2019-08-24 12:07 | HP ---
ADMIT DATE: 08/24/2019 CHIEF COMPLAINT: Hyperglycemia, weakness, cough, congestion. HISTORY OF PRESENT ILLNESS: The patient is a pleasant 48-year-old female who presented with weakness and cough, congestion and was noted to have hyperglycemia of greater than 600. I discussed the case with the ER physician. We placed her in the ICU on insulin drip. PAST MEDICAL HISTORY: Diabetes, hypertension, anxiety, cholecystectomy, left knee surgery, . ALLERGIES: None. FAMILY HISTORY: Hypertension. SOCIAL HISTORY: She does not drink, smoke or take drugs. MEDICATIONS: Reviewed, please refer to the MRAD. REVIEW OF SYSTEMS: GENERAL: No history of weight change, weakness or fevers. SKIN: No bruising, hair changes or rashes. EYES: No blurred, double or loss of vision. NOSE AND THROAT: No history of nosebleeds, hoarseness or sore throat. HEART: No history of palpitations, chest pain or shortness of breath on exertion. LUNGS: Denies cough, hemoptysis, wheezing or shortness of breath. GASTROINTESTINAL: Denies changes in appetite, nausea, vomiting, diarrhea or constipation. GENITOURINARY: No history of frequency, urgency, hesitancy or nocturia. NEUROLOGIC: Denies history of numbness, tingling, tremor or weakness. PSYCHIATRIC: No history of panic, anxiety or depression. ENDOCRINE: No history of heat or cold intolerance, polyuria or polydipsia. EXTREMITIES: Denies muscle weakness, joint pain, pain on walking or stiffness. PHYSICAL EXAMINATION: VITALS: Within normal limits and are stable. GENERAL: No apparent distress. Alert and oriented. HEENT: Head is normocephalic, atraumatic, pupils were equally round and reactive to light and accommodation. NECK: Supple, no JVD, no thyromegaly was noted. LUNGS: Clear to auscultation in all lung castro without rhonchi or wheezing. HEART: RRR, S1, S2 present. Peripheral pulses intact, no obvious murmurs were noted. ABDOMEN: Soft, nontender. Positive bowel sounds no organomegaly, normal bowel sounds. EXTREMITIES: Without any cyanosis, clubbing, or edema. Pedal pulses intact, Homans sign is negative. NEUROLOGIC: Normal speech, normal tone. A and O x 3, moves all extremities, no obvious focal deficits. PSYCHIATRIC: Normal affect, normal mood. Stable. SKIN: No ulcerations or rashes, good skin turgor, no jaundice. VASCULAR: Good capillary refill, neurovascular bundle appears to be intact. LABORATORY AND DIAGNOSTIC DATA: Sodium is 138, potassium 3.3, chloride 93, bicarbonate 22, BUN 7, creatinine 1.3, glucose 642, we got it down to 348 now with insulin drip. ASSESSMENT AND PLAN: Hyperglycemic hyperosmolar state. The patient has been admitted. We will give her IV fluids, IV insulin, home meds, replace her potassium, frequent labs, PT, OT, DVT prophylaxis. ELEN RICHARD DO DR: FÁTIMA/jana JOB#: [id number] / [id number]
[2019-08-24] MEDS ORDERED: FLUCONAZOLE 100 MG TABLET. PO ONE (13:00)
[2019-08-24 14:33] LABS: CALCIUM 9.7 mg/dL (8.5-10.1); GFR 71.9; POTASSIUM 3.2 mmol/L (3.5-5.1)
[2019-08-24 14:37] LABS: MAGNESIUM 2.1 mg/dL (1.8-2.4); PHOSPHORUS 2.4 mg/dL (2.6-4.7)
[2019-08-24] MEDS: POTASSIUM CHLORIDE 10MEQ 100 ML IV SCH ×3 (15:24→19:33)
[2019-08-24] MEDS ORDERED: OXYC10TA PO (16:23)
[2019-08-24] MEDS: POTASSIUM & SODIUM PHOSPHATES PACKET. PO SCH (20:57)
[2019-08-24] MEDS ORDERED: CLOTRIMAZOLE 1% VAGINAL CREAM 45GM TUBE. VG SCH (21:00)
[2019-08-25 00:01] VITALS: BP 134/81
[2019-08-25] MEDS: IV NORMAL SALINE 1000ML BAG 1,000 ML IV SCH ×2 (00:17→05:30)
[2019-08-25] MEDS: POTASSIUM CHLORIDE 10MEQ 100 ML IV SCH (00:17)
[2019-08-25 01:00] VITALS: BP 144/102
[2019-08-25] MEDS: fentaNYL PF VIAL 100 MCG/2 ML VIAL IVP PRN (01:01)
--- NOTE | 2019-08-25 01:33 | NUR ---
Pts BG now 191. Per free text nursing order from Dr. Barrientos, "Turn off insulin gtt when BG <200, start Lantus 20 units QHS, Lispro 10 units TID with meals. Okay to downgrade patient." Insulin orders entered into system. Waiting for Lantus to stop insulin gtt. Pt to be downgraded to MMOF. Pt resting with eyes closed and call light within reach. Will continue to monitor.
[2019-08-25] MEDS ORDERED: INSULIN GLARGINE SYRINGE. SQ SCH (01:45)
[2019-08-25 02:00] VITALS: BP 153/104
[2019-08-25 03:00] VITALS: BP 152/99
[2019-08-25] MEDS ORDERED: HYDROcodone/APAP 5/325MG 1 TAB TABLET PO PRN (03:15)
--- NOTE | 2019-08-25 06:40 | NUR ---
The inspector automatic typewriter just called and confirmed patients medications with pts confirmed pharmacy. PRN Morphine and PRN Oxycodone prescribed by Dr. Esther Rogel, phone number [phone] [facility] Will pass on to oncoming shift. Pt currently resting with eyes closed and call light within reach.
[2019-08-25 07:11] LABS: HEMATOCRIT 35.9 % (36.0-47.0); HEMOGLOBIN 11.8 g/dL (12.0-15.5); RED BLOOD COUNT 4.24 x10^6/uL (3.50-5.40); RED CELL DISTRIBUTION WIDTH 14.7 % (11.5-14.5)
[2019-08-25 07:30] VITALS: BP 139/96
[2019-08-25 07:41] LABS: CALCIUM 8.8 mg/dL (8.5-10.1); CREATININE 0.8 mg/dL (0.6-1.0)
[2019-08-25] MEDS: INSULIN LISPRO 300 UNITS/3 ML VIAL. SQ SCH ×2 (08:00→12:42)
[2019-08-25] MEDS: IPRATRPIUM/ALBUTEROL 0.5/2.5MG 3 ML NEBU. NEB SCH ×2 (08:00→12:00)
[2019-08-25] MEDS ORDERED: POTASSIUM CHLORIDE 20 MEQ TABLET.ER. PO ONE (08:30)
[2019-08-25] MEDS ORDERED: oxyCODONE IR 5 MG TABLET PO PRN (08:45)
[2019-08-25] MEDS: POTASSIUM & SODIUM PHOSPHATES PACKET. PO SCH (08:53)
[2019-08-25] MEDS ORDERED: ASPIRIN ENTERIC COATED 81 MG TABLET.DR. PO SCH (09:00)
[2019-08-25] MEDS ORDERED: LISINOPRIL 20 MG TABLET PO SCH (09:00)
[2019-08-25] MEDS ORDERED: NON FORMULARY ITEM (Phentermine Hcl 1 TAB) PO SCH (09:00)
[2019-08-25] MEDS ORDERED: MORPHINE ER 15 MG TABLET.ER PO SCH (09:00)
[2019-08-25] MEDS ORDERED: NON FORMULARY ITEM (Lisinopril/Hydrochlorothiazide (Lisinopril-Hctz 20-12.5 Mg Tab) 1 TAB) PO SCH (09:00)
[2019-08-25] MEDS ORDERED: FLUCONAZOLE 100 MG TABLET. PO SCH (09:00)
[2019-08-25] MEDS ORDERED: amLODIPine BESYLATE 5 MG TABLET PO SCH (09:00)
[2019-08-25] MEDS ORDERED: hydroCHLOROthiazide 12.5 MG CAPSULE PO SCH (09:00)
[2019-08-25 11:30] VITALS: BP 124/94
--- NOTE | 2019-08-25 12:19 | PDOC ---
[employer] PROGRESS NOTE Chief Complaint Chief Complaint Hyperosmolar state, uncontrolled DM History of Present Illness History of Present Illness Patient is a 48 year old female who presents with complaint of cough and congestion. The patient's symptoms started 2 weeks ago. Was recently seen by her primary doctor and started on azithromycin and cough syrup. Despite treatment, patient states her symptoms are getting worse. Has been also noticing sores in her mouth. States that she has very sore throat. Has pain in her chest and back when she coughs. Has also been having worsening body aches especially in both of her lower extremities. She states overall she feels like she is getting worse and thus came to the emergency department for further evaluation. Does have history of hypertension and type 2 diabetes mellitus. She was admitted with a hyperosmolar state and severely elevated blood glucose. Since admission, insulin and fluids have been administered. Patient was seen and examined in ICU. patient's blood glucose levels have returned to baseline. Vitals/I&O Vitals/I&O: Vital Signs Date Time Temp Pulse Resp B/P (MAP) Pulse Ox O2 Delivery O2 Flow Rate FiO2 08/25/19 11:30 98.5 86 18 124/94 (104) 96 Room Air 98.5 I & O 08/24/19 08/24/19 08/25/19 15:00 23:00 07:00 Intake Total 360 ml 3584.53 ml 2703.99 ml Output Total 850 ml 0 ml 400 ml Balance -490 ml 3584.53 ml 2303.99 ml Physical Exam General: Alert, Oriented X3, Cooperative, No acute distress Heart: Regular rate, Normal S1, Normal S2, No murmurs Lungs: Clear Abdomen: Normal bowel sounds, Soft, No tenderness, No hepatosplenomegaly Extremities: No clubbing, No cyanosis, No edema, Normal pulses Skin: No rashes, No breakdown, No significant lesion Labs Labs: Laboratory Tests Test 08/24/19 12:20 08/24/19 13:28 08/24/19 14:15 08/24/19 14:35 Glucose (Fingerstick) 373 mg/dL (70-99) 429 mg/dL (70-99) 318 mg/dL (70-99) Sodium Level 140 mmol/L (136-145) Potassium Level 3.2 mmol/L (3.5-5.1) Chloride Level 102 mmol/L (98-107) Carbon Dioxide Level 32 mmol/L (21-32) Anion Gap 6 (6-14) Blood Urea Nitrogen 7 mg/dL (7-20) Creatinine 1.0 mg/dL (0.6-1.0) Estimated GFR (Cockcroft-Gault) 71.9 Glucose Level 358 mg/dL (70-99) Calcium Level 9.7 mg/dL (8.5-10.1) Phosphorus Level 2.4 mg/dL (2.6-4.7) Magnesium Level 2.1 mg/dL (1.8-2.4) Test 08/24/19 15:42 08/24/19 16:47 08/24/19 17:51 08/24/19 18:51 Glucose (Fingerstick) 276 mg/dL (70-99) 283 mg/dL (70-99) 220 mg/dL (70-99) 295 mg/dL (70-99) Test 08/24/19 19:58 08/24/19 21:05 08/24/19 22:12 08/24/19 23:20 Glucose (Fingerstick) 357 mg/dL (70-99) 447 mg/dL (70-99) 367 mg/dL (70-99) 320 mg/dL (70-99) Test 08/25/19 00:23 08/25/19 01:26 08/25/19 04:29 08/25/19 07:40 Glucose (Fingerstick) 254 mg/dL (70-99) 191 mg/dL (70-99) 73 mg/dL (70-99) White Blood Count 16.0 x10^3/uL (4.0-11.0) Red Blood Count 4.24 x10^6/uL (3.50-5.40) Hemoglobin 11.8 g/dL (12.0-15.5) Hematocrit 35.9 % (36.0-47.0) Mean Corpuscular Volume 85 fL (79-100) Mean Corpuscular Hemoglobin 28 pg (25-35) Mean Corpuscular Hemoglobin Concent 33 g/dL (31-37) Red Cell Distribution Width 14.7 % (11.5-14.5) Platelet Count 253 x10^3/uL (140-400) Sodium Level 139 mmol/L (136-145) Potassium Level 3.0 mmol/L (3.5-5.1) Chloride Level 101 mmol/L (98-107) Carbon Dioxide Level 29 mmol/L (21-32) Anion Gap 9 (6-14) Blood Urea Nitrogen 8 mg/dL (7-20) Creatinine 0.8 mg/dL (0.6-1.0) Estimated GFR (Cockcroft-Gault) 93.0 Glucose Level 69 mg/dL (70-99) Calcium Level 8.8 mg/dL (8.5-10.1) Test 08/25/19 11:44 Glucose (Fingerstick) 200 mg/dL (70-99) Review of Systems Review of Systems: Patient complains of sore throat and general malaise. Patient also complains of blurry vision. Assessment and Plan Assessmemt and Plan Problems Medical Problems: (1) Chest pain Status: Acute (2) Cough Status: Acute (3) Dehydration Status: Acute (4) Diabetes mellitus with hyperosmolarity Status: Acute Assessment: Hyperosmolar state, uncontrolled DM Plan: - 1. Patient is at baseline --> discharge today Comment Review of Relevant I have reviewed the following items kj (where applicable) has been applied. Medications: Current Medications Medications (Trade) Dose Ordered Sig/Jaylen Route PRN Reason Start Time Stop Time Status Last Admin Dose Admin Fluconazole (Diflucan) 100 mg DAILY PO 08/25/19 09:00 08/25/19 08:53 Clotrimazole (Mycelex-7) 1 [place] HS VG 08/24/19 21:00 08/31/19 20:59 08/24/19 18:05 Fluconazole (Diflucan) 100 mg 1X ONCE PO 08/24/19 13:00 08/24/19 13:01 DC 08/24/19 12:51 Potassium Chloride/Water 100 ml @ 100 mls/hr Q1H IV 08/24/19 15:30 08/24/19 19:29 DC 08/25/19 00:17 Potassium Phos/ Sodium Phos (Phos-Nak) 1 pkt BID PO 08/24/19 21:00 08/25/19 09:01 DC 08/25/19 08:53 Insulin Glargine (Lantus Syringe) 20 unit QHS SQ 08/25/19 01:45 08/25/19 01:51 Acetaminophen/ Hydrocodone Bitart (Lortab 5/325) 1 tab PRN Q3HRS PRN PO PAIN 08/25/19 03:15 08/25/19 03:29 Potassium Chloride (Klor-Con) 40 meq 1X ONCE PO 08/25/19 08:30 08/25/19 08:39 DC 08/25/19 08:52 Amlodipine Besylate (Norvasc) 5 mg DAILY PO 08/25/19 09:00 08/25/19 08:53 Aspirin (Ecotrin) 81 mg DAILY PO 08/25/19 09:00 08/25/19 08:53 Morphine Sulfate (Ms Contin) 15 mg BID PO 08/25/19 09:00 08/25/19 08:53 Oxycodone HCl (Roxicodone) 20 mg PRN TID PRN PO PAIN 08/25/19 08:45 08/25/19 08:52 Lisinopril (Prinivil) 20 mg DAILY PO 08/25/19 09:00 08/25/19 08:53 Hydrochlorothiazide (Microzide) 12.5 mg DAILY PO 08/25/19 09:00 08/25/19 08:53 ELEN RICHARD III DO Aug 25, 2019 12:19
--- NOTE | 2019-08-25 13:18 | NUR ---
Discharge Note: SOFYA ORDAZ D1 [facility] ICU Discharge instructions and discharge home medications reviewed with Patient and a copy given. All questions have been answered and understanding verbalized. The following instructions and handouts were given: hyperglycemia, cough, chronic pain management, diabetes keeping your heart and blood vessels healthy, fluconazole, blurred vision, diabetic ketoacidosis, promethazine w/ codeine, how to avoid diabetes problems Patient discharged to Home or Self Care with Family Member via Wheelchair
--- NOTE | 2019-08-25 20:59 | DS ---
DATE OF DISCHARGE: 08/25/2019 ADMISSION DIAGNOSIS: Hyperosmolar hyperglycemic state. DISCHARGE DIAGNOSIS: Resolving HONK. HOSPITAL COURSE: The patient is a pleasant 48-year-old female who presented with HONK syndrome. She was admitted, we gave her IV fluids and insulin. Over the next two days, she returned to baseline. I saw her and examined this morning, she is doing great. We plan to discharge with close outpatient followup. DISPOSITION: Home. ACTIVITY: As tolerated. DIET: Low sodium. MEDICATIONS: Please see MRAD. TOTAL TIME: 34 minutes. ELEN RICHARD DO DR: FÁTIMA/jana JOB#: [id number] / [id number]
[2019-08-26] MEDS ORDERED: metFORMIN 500 MG TABLET PO SCH (17:00)
== END 2019-08-25 13:30 | disposition home or self-care (01) | DRG 639 ==
LOC: ER 22:03 → 1 WEST ICU 08-24 04:05
PROVIDERS: ADMIT Internal Medicine; ATTEND Internal Medicine
DX: E11.00 Type 2 diabetes mellitus with hyperosmolarity without nonketotic hyperglycemic-hyperosmolar coma (NKHHC) (principal); E86.0 Dehydration; F41.9 Anxiety disorder, unspecified; I10 Essential (primary) hypertension; Z90.49 Acquired absence of other specified parts of digestive tract; Z82.49 Family history of ischemic heart disease and other diseases of the circulatory system
CPT/HCPCS: 36415; 70450; 71045; 71275; 80048; 80053; 81001; 81025; 82553; 82962; 83735; 83880; 84100; 84484; 85025; 85027; 85379; 93005; 94640; 94760; 96361; 96374; 96375; J1815; J2405; J2930; J3010; J3480; J7030; J7620; Q9967; 99291-25; G0378

== ENCOUNTER → 2020-08-17 | Outpatient (CLI) | payer OTHER ==
[2020-08-07 10:37] VITALS: BP 148/73
[~2020-08-17] MED LIST changes: -LISI1TAB19 PO; +LISI1TAB37 PO; +METF10007 PO; +MORP-15 PO; +OXYC10TA PO; +OXYC30TA64 PO; +PHEN37.5 PO
== END ==
LOC: LAB 12:53
PROVIDERS: ATTEND Internal Medicine Gastroenterology
DX: Z01.812 Encounter for preprocedural laboratory examination (principal); D64.9 Anemia, unspecified; Z20.828 Contact with and (suspected) exposure to other viral communicable diseases
CPT/HCPCS: U0003-CS

== ENCOUNTER → 2020-08-20 | Day surgery (SDC) | payer OTHER ==
[~2020-08-20] MED LIST changes: +IV RINGERS,LACTATED 1000ML 1,000 ML IV SCH; +LIDOCAINE 2% PF 5 ML VIAL. ONE; +PROPOFOL 10 MG/ML (20ML) VIAL. IV ONE
--- NOTE | 2020-08-20 12:51 | PDOC1 ---
History and Physical Date of Admission Date of Admission DATE: 08/20/20 TIME: 12:47 Source Source: Chart review, Patient History of Present Illness History of Present Illness Patient with CAL. Unknown result of any prior w/u. No symptoms. S/p maxime. H/o fatty liver. Past Medical History Cardiovascular: HTN CENTRAL NERVOUS SYSTEM: Periperal neuropathy Psych: Anxiety Renal/: Chronic renal insuff Endocrine: Diabetes Past Surgical History Past Surgical History: Cholecystectomy, , Total knee replacement Family History Family History: Hypertension Social History Smoke: 1 pack per day ALCOHOL: none Drugs: None Current Medications Current Medications Current Medications Ringer's Solution 1,000 ml @ 50 mls/hr Q20H IV ; Start 08/20/20 at 07:00; Stop 08/20/20 at 18:59 Propofol (Diprivan) 200 mg STK-MED ONCE IV ; Start 08/20/20 at 12:34; Stop 08/20/20 at 12:34; Status DC Lidocaine HCl (Lidocaine Pf 2% Vial) 5 ml STK-MED ONCE .ROUTE ; Start 08/20/20 at 12:34; Stop 08/20/20 at 12:34; Status DC Active Scripts Active Norvasc (Amlodipine Besylate) 5 Mg Tablet 1 Tab PO DAILY Reported Oxycodone Hcl Immed.release (Oxycodone Hcl) 10 Mg Tablet 2 Tab PO PRN TID PRN MDD 3 Tablet(s) 30 Days Phentermine Hcl 37.5 Mg Tablet 1 Tab PO DAILY Morphine Sulfate Er (Morphine Sulfate) 15 Mg Tablet.er 1 Tab PO BID Allergies Allergies: Coded Allergies: No Known Drug Allergies (Unverified , 03/24/16) ROS Review of System Otherwise negative. Physical Exam General: Alert, Oriented X3, Cooperative, No acute distress Lungs: Clear to auscultation Heart: S1S2, RRR, no gallops, no murmurs Abdomen: Normal bowel sounds, Soft, No tenderness, No hepatosplenomegaly, No masses Rectal Exam: deferred (to procedure) Extremities: No cyanosis, No edema Skin: No significant lesion Neuro: Normal speech, Strength at 5/5 X4 ext, Normal tone, Sensation intact, Cranial nerves 3-12 NL, Reflexes 2+ Psych/Mental Status: Mental status NL, Mood NL Vitals Vitals See nursing record. VTE Prophylaxis Ordered VTE Prophylaxis Devices: No VTE Pharmacological Prophylaxi: No Assessment/Plan Assessment/Plan IMP: Iron deficiency anemia PLAN: colon/EGD CARMEN SINGLETARY MD Aug 20, 2020 12:51
--- NOTE | 2020-08-20 14:49 | PDOC4 ---
PROCEDURE Procedure EGD/biopsy Colonoscopy with polypectomies Indication: CAL Findings: E--Normal G--Striped erythema, antrum, biopsied. D--Normal to second portion, biopsied. WILLIAMS--normal --'Scope advanced to cecum. Mucosa normal. No diverticulosis. 3, 4-6 mm, polyps along sigmoid, removed with cold snare. IH's on retroflex. Kiya.well. IMP: gastric erythema Colon polyps Internal hemorrhoids REC: resume home meds, diet. F/u in 2 weeks. Await path. CARMEN SINGLETARY MD Aug 20, 2020 14:49
[2020-08-20 15:14] VITALS: BP 188/94
--- NOTE | 2020-08-24 13:08 | PATHOLOGY ---
[facility] Accession Number: [id number] . 01 Material submitted: . PART A: duodenum - DUODENAL BX PART B: stomach - ANTRUM BX PART C: sigmoid colon - SIGMOID POLYPS . 01 Clinical history: . ANEMIA, BLOOD IN STOOL . 02 Diagnosis: A. Small bowel "duodenum", endoscopic biopsy: - Duodenal mucosa with Sweta's gland hyperplasia. - Please see comment. . B. Stomach "antrum", endoscopic biopsy: - Gastric antral mucosa with features of chronic active gastritis. - Negative for intestinal metaplasia, dysplasia, and malignancy. - POSITIVE for Helicobacter pylori. . C. Large bowel "sigmoid polyp", endoscopic biopsy: - Hyperplastic polyp; negative for dysplasia and malignancy. LBQ 08/24/2020 1221 Local . 02 Comment: The duodenal biopsy (specimen A) shows a nodular cluster of clear cells within the lamina propria. Cytologically the cells are bland and based on their immunophenotypic characteristics, they are felt to represent hyperplastic Sweta's glands. (MLK/db; 08/23/2020) . 02 Electronically signed: . Toshia Hernandez MD, Pathologist NPI- [id number] . 01 Gross description: . A. Received in formalin labeled "Palmer, Christy, duodenal BX" are multiple jacobo-brown soft tissue fragments measuring in aggregate 0.9 x 0.3 x 0.1 cm. The specimen is submitted entirely in A1. . B. Received in formalin labeled "Palmer, Christy, antrum BX" are two jacobo-brown soft tissue fragments measuring in aggregate 0.6 x 0.4 x 0.1 cm. The specimen is submitted entirely in B1. . C. Received in formalin labeled "Palmer, Christy, sigmoid polyps" are multiple jacobo-brown soft tissue fragments measuring in aggregate 1.5 x 1.0 x 0.3 cm. The specimen is submitted entirely in C1. ([facility]; 08/21/2020) [facility] 08/21/2020 1846 Local . 02 Microscopic: . Immunohistochemical stain results (properly controlled) . S100 (block A1) - Highlights dendritic cells within mucosa CD117 (block A1) - Highlights scattered inflammatory cells NSE (block A1) - Highlights scattered dendritic cells AE1/AE3 (block A1) - Highlights epithelial cells, including nodular cluster of clear cells in lamina propria . Helicobacter pylori - Positive for organisms . 02 Pathologist provided ICD-10: K63.5, B96.81, D64.9, K92.1 . 02 CPT . 222242, 954537, [id number], [id number], D51183 Specimen Comment: A courtesy copy of this report has been sent to [phone] Specimen Comment: Report sent to Performed at: 01 [facility] [address], [place] [id number] MD Julian Villaseñor MD Phone: [phone] Performed at: 02 [facility] [address] [place], [place] [id number] MD Justen Corley MD Phone: [phone]
== END ==
LOC: ENDOS 12:35
PROVIDERS: ATTEND Internal Medicine Gastroenterology
DX: D64.9 Anemia, unspecified (principal); K92.1 Melena; K29.50 Unspecified chronic gastritis without bleeding; K63.5 Polyp of colon; B96.81 Helicobacter pylori [H. pylori] as the cause of diseases classified elsewhere; I12.0 Hypertensive chronic kidney disease with stage 5 chronic kidney disease or end stage renal disease; N18.6 End stage renal disease; E11.22 Type 2 diabetes mellitus with diabetic chronic kidney disease; E78.5 Hyperlipidemia, unspecified; F41.9 Anxiety disorder, unspecified; Z79.899 Other long term (current) drug therapy; Z83.3 Family history of diabetes mellitus; Z79.84 Long term (current) use of oral hypoglycemic drugs
CPT/HCPCS: 43239; 45380; 88305; 88341; 88342; J2704

== ENCOUNTER 2021-03-05 13:51 | Emergency (ER) | payer OTHER, MEDICAID ==
[~2021-03-05] VITALS: Ht 165.1 cm; Wt 104.0 kg
[~2021-03-05 13:51] MED LIST changes: -IV RINGERS,LACTATED 1000ML 1,000 ML IV SCH; -LIDOCAINE 2% PF 5 ML VIAL. ONE; -PROPOFOL 10 MG/ML (20ML) VIAL. IV ONE
[2021-03-05 15:00] VITALS: BP 106/61
--- NOTE | 2021-03-05 15:20 | PHYS DOC ---
Past Medical History Past Medical History: Anxiety, Diabetes-Type II, Hypertension Past Surgical History: Cholecystectomy, , Other Additional Past Surgical Histo: left knee Smoking Status: Unknown if ever smoked Alcohol Use: None Drug Use: None Adult General Chief Complaint Chief Complaint: DENTAL PROBLEM HPI HPI Patient is a 50 year old male with a past medical history of depression, hypertension, diabetes and IV substance abuse now presents emergency department complaining of new onset of mouth and dental pain. Patient states that over the last week she has developed worsening swelling over the left mouth and mandibular area. Patient states that she was seen by dentist yesterday who prescribed her an antibiotic and referred her to an oral surgeon patient states that she is no insurance coverage and does not have the money to pay for either. Patient is she is coming here because she is having worsening pain and is trying to seek treatment. Denies any fever or chills. Patient states that she thinks that the x-ray at the dentist office showed "an abscess going into my body my lower jaw with lots of little spiky things." Review of Systems Review of Systems Constitutional: Denies fever or chills [] Eyes: Denies change in visual acuity, redness, or eye pain [] HENT: Denies nasal congestion or sore throat [] Respiratory: Denies cough or shortness of breath [] Cardiovascular: No additional information not addressed in HPI [] GI: Denies abdominal pain, nausea, vomiting, bloody stools or diarrhea [] : Denies dysuria or hematuria [] Musculoskeletal: Denies back pain or joint pain [] Integument: Denies rash or skin lesions [] Neurologic: Denies headache, focal weakness or sensory changes [] Endocrine: Denies polyuria or polydipsia [] All other systems were reviewed and found to be within normal limits, except as documented in this note. Current Medications Current Medications Current Medications Medications (Trade) Dose Ordered Sig/Jaylen Start Time Stop Time Status Last Admin Dose Admin Info (CONTRAST GIVEN -- Rx MONITORING) 1 each PRN DAILY PRN 03/05/21 16:30 03/07/21 16:29 Iohexol (Omnipaque 300 Mg/ml) 70 ml 1X ONCE 03/05/21 16:30 03/05/21 16:31 DC 03/05/21 16:26 70 ML Lidocaine/ Epinephrine (LIDOCAINE 1%-EPI 1:100,000 Multi-Dose) 20 ml STK-MED ONCE 03/05/21 17:25 03/05/21 17:25 DC Lidocaine/ Epinephrine (LIDOCAINE 2%-EPI 1:100,000 multi-dose) 20 ml STK-MED ONCE 03/05/21 17:24 03/05/21 17:25 DC Allergies Allergies Allergies Coded Allergies Type Severity Reaction Last Updated Verified No Known Drug Allergies 08/20/20 No Physical Exam Physical Exam Constitutional: Well developed, well nourished, no acute distress, non-toxic appearance. [] HENT: Normocephalic, atraumatic, bilateral external ears normal, oropharynx moist, no oral exudates, nose normal. Severe left lower lateral mandibular swelling with a palpable fluctuance consistent with an abscess Eyes: PERRLA, EOMI, conjunctiva normal, no discharge. [] Neck: Normal range of motion, no tenderness, supple, no stridor. [] Cardiovascular:Heart rate regular rhythm, no murmur [] Lungs & Thorax: Bilateral breath sounds clear to auscultation [] Abdomen: Bowel sounds normal, soft, no tenderness, no masses, no pulsatile masses. [] Skin: Warm, dry, no erythema, no rash. [] Back: No tenderness, no CVA tenderness. [] Extremities: No tenderness, no cyanosis, no clubbing, ROM intact, no edema. [] Neurologic: Alert and oriented X 3, normal motor function, normal sensory function, no focal deficits noted. [] Psychologic: Affect normal, judgement normal, mood normal. [] Current Patient Data Vital Signs Vital Signs Date Time Temp Pulse Resp B/P (MAP) Pulse Ox O2 Delivery O2 Flow Rate FiO2 03/05/21 15:00 98.1 106 18 106/61 (76) 98 Room Air 98.1 Lab Values Laboratory Tests Test 03/05/21 15:27 White Blood Count 9.6 x10^3/uL (4.0-11.0) Red Blood Count 4.29 x10^6/uL (3.50-5.40) Hemoglobin 13.0 g/dL (12.0-15.5) Hematocrit 38.3 % (36.0-47.0) Mean Corpuscular Volume 89 fL (79-100) Mean Corpuscular Hemoglobin 30 pg (25-35) Mean Corpuscular Hemoglobin Concent 34 g/dL (31-37) Red Cell Distribution Width 14.2 % (11.5-14.5) Platelet Count 368 x10^3/uL (140-400) Neutrophils (%) (Auto) 62 % (31-73) Lymphocytes (%) (Auto) 30 % (24-48) Monocytes (%) (Auto) 6 % (0-9) Eosinophils (%) (Auto) 1 % (0-3) Basophils (%) (Auto) 1 % (0-3) Neutrophils # (Auto) 5.9 x10^3/uL (1.8-7.7) Lymphocytes # (Auto) 2.9 x10^3/uL (1.0-4.8) Monocytes # (Auto) 0.5 x10^3/uL (0.0-1.1) Eosinophils # (Auto) 0.1 x10^3/uL (0.0-0.7) Basophils # (Auto) 0.1 x10^3/uL (0.0-0.2) Sodium Level 135 mmol/L (136-145) L Potassium Level 5.0 mmol/L (3.5-5.1) Chloride Level 96 mmol/L (98-107) L Carbon Dioxide Level 26 mmol/L (21-32) Anion Gap 13 (6-14) Blood Urea Nitrogen 19 mg/dL (7-20) Creatinine 1.0 mg/dL (0.6-1.0) Estimated GFR (Cockcroft-Gault) 71.3 BUN/Creatinine Ratio 19 (6-20) Glucose Level 454 mg/dL (70-99) H Lactic Acid Level 3.5 mmol/L (0.4-2.0) H Calcium Level 10.5 mg/dL (8.5-10.1) H Total Bilirubin 0.3 mg/dL (0.2-1.0) Aspartate Amino Transferase (AST) 10 U/L (15-37) L Alanine Aminotransferase (ALT) 11 U/L (14-59) L Alkaline Phosphatase 127 U/L (46-116) H Total Protein 9.4 g/dL (6.4-8.2) H Albumin 3.6 g/dL (3.4-5.0) Albumin/Globulin Ratio 0.6 (1.0-1.7) L Laboratory Tests 03/05/21 15:27 Laboratory Tests 03/05/21 15:27 EKG EKG [] Radiology/Procedures Radiology/Procedures [] Course & Med Decision Making Course & Med Decision Making Pertinent Labs and Imaging studies reviewed. (See chart for details) 50-year-old female presenting the emergency department what appears to be a left oral abscess. Based on the patient's explanation of this I am concerned that this demonstrates something that is eroding into the lower mandible and therefore obtain a CT scan with and without contrast to make sure there there is no other significant finding. If this is not the case and has a simple abscess we will plan for incision and drainage at the bedside after local anesthesia. 18:09 -I was attempting to use an incision and drainage as I was attempting to return the patient's laceration and became scared and states that she no longer wants an incision and drainage and instead wants to try to follow-up with an oral surgeon. I explained to her that the abscess can continue to get worse and cause sepsis and she verbalized understanding and stated that she wanted to leave it did not want any further treatment Dragon Disclaimer Dragon Disclaimer This electronic medical record was generated, in whole or in part, using a voice recognition dictation system. Departure Departure Impression: Primary Impression: Oral abscess Disposition: 01 HOME / SELF CARE / HOMELESS Condition: GOOD Referrals: CARLITOS MAR MD (PCP) Patient Instructions: Abscess Additional Instructions: Please call to make an appointment with Dr. Derick Alcocer DDS at [phone] is also to make an appointment for oral abscess. Please return the emergency department if any sudden fevers, worsening of her symptoms, chest pain or vomiting. EMERGENCY DEPARTMENT GENERAL DISCHARGE INSTRUCTIONS Thank you for coming to [facility] Emergency Department (ED) today and trusting us with you care. We trust that you had a positive experience in our Emergency Department. If you wish to speak to the department management, you may call the Director at [phone]. YOUR FOLLOW UP INSTRUCTIONS ARE FOLLOWS: 1. Do you have a private Doctor? If you do not have a private doctor, please ask for a resource list of physicians or clinics that may be able to assist you with follow up care. 2. The Emergency Physicain has interpreted your x-rays. The X-Ray specialist will also review them. If there is a change in the findings, you will be notified in 48 hours when at all possible. 3. A lab test or culture has been done, your results will be reviewed and you will be notified if you need a change in treatment. ADDITIONAL INSTRUCTIONS AND INFORMATION: 1. Your care today has been supervised by a physician who is specially trained in emergency care. Many problems require more than one evaluation for a complete diagnosis and treatment. We recommend that you schedule your follow up appointment as recommended to ensure complete treatment of you illness or injury. If you are unable to obtain follow up care and continue to have a problem, or if your condition worsens, we recommend that you return to the ED. 2. We are not able to safely determine your condition over the phone nor are we able to give sound medical advice over the phone. For these safety reasons, if you call for medical advice we will ask you to come to the ED for further evaluation. 3. If you have any questions regarding these discharge instructions please call the ED at [phone]. SAFETY INFORMATION: In the interest of safety, wellness, and injury prevention; we encourage you to wear your sealbelt, if you smoke; quite smoking, and we encourage family to use a protective helmet for bicycling and other sporting events that present an increased risk for head injury. IF YOUR SYMPTOMS WORSEN OR NEW SYMPTOMS DEVELOP, OR YOU HAVE CONCERNS ABOUT YOUR CONDITION; OR IF YOUR CONDITION WORSENS WHILE YOU ARE WAITING FOR YOUR FOLLOW UP APPOINTMENT; EITHER CONTACT YOUR PRIMARY CARE DOCTOR, THE PHYSICIAN WHOSE NAME AND NUMBER YOU WERE GIVEN, OR RETURN TO THE ED IMMEDIATELY. Scripts Sulfamethoxazole/Trimethoprim (BACTRIM DS TABLET) 1 Each Tablet 1 TAB PO BID for infection, #14 TAB Prov: SEYMOUR FREDERICK MD 03/05/21 SEYMOUR FREDERICK MD Mar 05, 2021 15:20
[2021-03-05 15:40] LABS: BASO # 0.1 x10^3/uL (0.0-0.2); BASO % 1 % (0-3); EOS # 0.1 x10^3/uL (0.0-0.7); EOS % 1 % (0-3); HEMATOCRIT 38.3 % (36.0-47.0); LYMPH # 2.9 x10^3/uL (1.0-4.8); LYMPH % 30 % (24-48); MEAN CORPUSCULAR HEMOGLOBIN 30 pg (25-35); MEAN CORPUSCULAR HGB CONC 34 g/dL (31-37); MEAN CORPUSCULAR VOLUME 89 fL (79-100); MONO # 0.5 x10^3/uL (0.0-1.1); MONO % 6 % (0-9); NEUT # 5.9 x10^3/uL (1.8-7.7); NEUT % 62 % (31-73); PLATELET COUNT 368 x10^3/uL (140-400); RED BLOOD COUNT 4.29 x10^6/uL (3.50-5.40); RED CELL DISTRIBUTION WIDTH 14.2 % (11.5-14.5); WHITE BLOOD COUNT 9.6 x10^3/uL (4.0-11.0)
[2021-03-05 16:08] LABS: CALCIUM 10.5 mg/dL (8.5-10.1); GFR 71.3
[2021-03-05 16:17] LABS: ALBUMIN 3.6 g/dL (3.4-5.0); ALBUMIN/GLOBULIN RATIO 0.6 (1.0-1.7); TOTAL BILIRUBIN 0.3 mg/dL (0.2-1.0); TOTAL PROTEIN 9.4 g/dL (6.4-8.2)
[2021-03-05] MEDS ORDERED: CONTRAST GIVEN. MC PRN (16:30)
[2021-03-05] MEDS ORDERED: IOHEXOL 300 MG/ML 100ML VIAL. IV ONE (16:30)
--- NOTE | 2021-03-05 17:12 | RAD ---
Exam: CT neck with contrast INDICATION: Left mandibular swelling/abscess TECHNIQUE: Sequential axial images through the neck obtained following the administration of 70 mL of Omni 300 IV contrast. Sagittal and coronal reformatted images were reconstructed from the axial data and reviewed. Exposure: One or more of the following in the visualized dose reduction techniques were utilized for this examination: 1. Automated exposure control 2. Adjustment of the MA and/or KV according to patient size 3. Use of iterative of reconstructive technique Comparisons: None FINDINGS: Visualized intracranial structures are unremarkable. Globes and intervertebral contents are unremarka ble. Cervical vasculature is patent. Nasopharynx, oropharynx, hypopharynx and larynx are unremarkable. Thyroid and salivary glands are unremarkable. There is stranding and edema noted within the subcutaneous fat overlying the mandible on the left. Th ere is some irregularity to the alveolar surface of the mandible on the left. No enlarged cervical lymph nodes are identified. Visualized lung apices are clear. No suspicious osseous lesions or acute fractures are identified. IMPRESSION: Stranding and edema in the subcutaneous fat overlying the left mandible. There is irregularity of the alveolar surface of the left mandible in this region which is nonspecific and could be sequela of in fection. Correlate with physical exam Electronically signed by: Maryuri Kulkarni MD (03/05/2021 5:10 PM) [facility]
[2021-03-05] MEDS ORDERED: LIDOCAINE 2%/EPI 1:100,000 20 ML VIAL. ONE (17:24)
[2021-03-05] MEDS ORDERED: LIDOCAINE 1%/EPI 1:100,000 20 ML VIAL. ONE (17:25)
[2021-03-05] MEDS ORDERED: LIDOCAINE 2%/EPI 1:100,000 20 ML VIAL. INJ ONE (17:30)
[2021-03-05] MEDS ORDERED: SULF1TAB24 PO (18:14)
== END 2021-03-05 18:48 | disposition home or self-care (01) ==
LOC: ER 13:51
DX: K12.2 Cellulitis and abscess of mouth (principal); K08.89 Other specified disorders of teeth and supporting structures; R60.0 Localized edema; F41.9 Anxiety disorder, unspecified; E11.9 Type 2 diabetes mellitus without complications; I10 Essential (primary) hypertension; Z90.49 Acquired absence of other specified parts of digestive tract; Z98.890 Other specified postprocedural states
CPT/HCPCS: 36415; 41800; 70491; 80053; 83605; 85025; 99285; J3490; Q9967